=== PATIENT | female | born 1950 | race Caucasian/White ===

== ENCOUNTER → 2017-08-02 16:10 | Outpatient (CLI) | payer MEDICARE, BC, SELFPAY ==
--- NOTE | 2017-08-02 16:20 | BI_ITS ---
MAMMOGRAPHY - BILATERAL SCREENING REASON FOR EXAM: Female, 67 years old. Routine annual screening examination. PERTINENT HISTORY: Non-contributory. TECHNIQUE: Digital bilateral breast gary (3D mammographic acquisition) in the CC and MLO projections. 2-D mediolateral oblique (MLO) and craniocaudad (CC) views of both breasts were obtained. CAD: Full Field Digital Mammography with Computer Added Detection was performed. COMPARISON: Comparison is made with prior study dated July 15, 2016 and July 10, 2015. FINDINGS: Breast Composition: The breasts are heterogeneously dense, which may obscure small masses. There are no dominant masses or suspicious calcifications. No other significant abnormalities are identified. There has been no significant change since the prior study. BI/SCREENING MAMM (CAD), BILAT IMPRESSION: Stable bilateral screening mammogram. Yearly follow-up mammogram recommended. (A) ASSESSMENT CATEGORY: BIRADS Category 1: Negative. A letter regarding these results will be sent to the patient by the facility within 30 days. Approximately 10% of breast cancers are not detected by mammography. A normal mammogram should not delay biopsy of a clinically suspicious abnormality. [id number] Electronically Signed: Sravan Galeano MD at 12:57 EDT Tel [phone], Service support ,
== END ==
PROVIDERS: PCP Family Medicine; Visit Provider Obstetrics & Gynecology
DX: Z12.31 Encounter for screening mammogram for malignant neoplasm of breast (principal)
CPT/HCPCS: 77063; 77067

== ENCOUNTER → 2017-08-12 14:20 | Outpatient (CLI) | payer MEDICARE, BC, SELFPAY ==
--- NOTE | 2017-08-12 14:29 | BD_ITS ---
STUDY: DUAL ENERGY X-RAY ABSORPTIOMETRY / DXA REASON FOR EXAM: Female, 67 years old. The patient is postmenopausal. Loss of height. TECHNIQUE: Bone Mineral Density (BMD) measurements of lumbar spine and bilateral hips were obtained. COMPARISON: None. FINDINGS: Lumbar Spine (L1-L4): g/cm2 (0.880) / T-score (-2.4) / Z-score (-0.8) Findings are suggestive of osteopenia with a moderate fracture risk. Left Femur Total: g/cm2 (0.928) / T-score (-0.6) / Z-score (0.6) Left Femoral Neck: g/cm2 (0.931) / T-score (-0.8) / Z-score (0.7) Right Femur Total: g/cm2 (0.861) / T-score (-1.2) / Z-score (0.0) Right Femoral Neck: g/cm2 (0.845) / T-score (-1.4) / Z-score (0.1) BD/Dexa Bone Density Study IMPRESSION: The patient is considered osteopenic as outlined below according to World Reagan Organization (WHO) criteria with a moderate fracture risk. Reference Information: The T-score is the number of standard deviations above or below the standard which is normal for young adults at their peak bone mineral density. The World Health Organization (WHO) interprets the T-scores as follows: Above -1 Normal bone density Between -1 and -2.5 Osteopenia Equal to / or below -2.5 Osteoporosis As a practical clinical guideline, osteopenia may be graded as follows: Mild -1 through -1.5 Moderate -1.6 through -2.0 Severe -2.1 through -2.4 The Z-score is the number of standard deviations above or below age-matched controls. A Z-score of less than -1.5 would be considered abnormal. References: 1. NIH Osteoporosis and Related Bone Diseases http://www.osteo.org 2. International Society for Clinical Densitometry http://www.iscd.org 3. National Osteoporosis Foundation http://www.nof.org Electronically Signed: Sravan Galeano MD at 15:29 EDT Tel [phone], Service support ,
== END ==
PROVIDERS: PCP Family Medicine; Visit Provider Obstetrics & Gynecology
DX: E28.39 Other primary ovarian failure (principal)
CPT/HCPCS: 77080

== ENCOUNTER → 2017-12-20 11:51 | Outpatient (CLI) | payer MEDICARE, BC, SELFPAY ==
[2017-12-20 16:16] LABS: Absolute Lymphocyte Count 1.85 X10^3/ul (0.83-4.51); Absolute Neutrophil Count 3.8 X10^3/uL (2.0-7.7); Basophil# 0.02 X10^3/uL; Basophil% 0.3 % (0-1); Eosinophil# 0.05 X10^3/uL; Eosinophils% 0.8 % (0-5); Hematocrit 43.1 % (37-47); Hemoglobin 14.3 g/dl (12.0-15.0); Lymphocyte # 1.85 X10^3/ul (4.0); Lymphocyte % 29.6 % (19-41); Mean Corp Hgb Conc 33.2 g/gl (32-36); Mean Corpuscular Hgb 31.5 pg (27.0-32.0); Mean Corpuscular Volume 94.9 fL (81-99); Mean Platelet Vol. 10.5 fl (6.2-12.0); Monocyte# 0.49 X10^3/uL; Monocyte% 7.9 % (0-10); Neutrophil # 3.83 X10^3/uL (2.7-7.7); Neutrophil % 61.4 % (47-70); Platelet Count 259 K/mm3 (150-450); RBC Distribution Width CV 13.2 % (11.6-14.6); RBC Distribution Width SD 45.7 fl (35.1-43.9); Red Blood Count 4.54 M/mm3 (4.2-5.4); White Blood Count 6.2 K/mm3 (4.4-11.0)
[2017-12-20 16:20] LABS: POSITIVE COUNT NO; POSITIVE DIFFERENTIAL NO; POSITIVE MORPHOLOGY NO
[2017-12-20 16:34] LABS: ALB/GLOB Ratio 1.1 RATIO (0.9-2.4); AST(SGOT) 31 U/L (15-37); Alanine Aminotransfer ALT/SGPT 49 U/L (13-56); Albumin, Serum 4.1 g/dL (3.2-5.0); Alkaline Phosphatase 115 U/L (45-117); Anion Gap 9 (5-15); BUN 18 mg/dL (7-18); BUN/Creat Ratio 24.2 RATIO (10-20); Calcium,Total 9.1 mg/dL (8.5-10.1); Chloride 106 mmol/L (98-107); Cholesterol 236 mg/dL (200); Creatinine, Serum 0.74 mg/dL (0.55-1.02); EST Glomerular Filtration Rate 83 mL/min (>60); Est Glom Filt Rate - Afr Amer 101 mL/min (>60); Globulin 3.6 g/dL (2.2-4.2); Glucose 93 mg/dL (74-106); High Density Lipoprotein 67 mg/dL; Potassium 3.8 mmol/L (3.5-5.1); Protein, Total 7.7 g/dL (6.4-8.2); Sodium Level 141 mmol/L (136-145); Thyroid Stim Hormone (TSH) 1.11 uIU/mL (0.358-3.74); Triglycerides 102 mg/dL; Very Low Density Lipoprotein 20 mg/dL (5-40)
== END ==
PROVIDERS: Family Provider Family Medicine; PCP Family Medicine; Visit Provider Family Medicine
DX: E78.5 Hyperlipidemia, unspecified (principal); M85.80 Other specified disorders of bone density and structure, unspecified site
CPT/HCPCS: 36415; 80053; 80061; 82306; 84443; 85025

== ENCOUNTER → 2018-08-08 10:15 | Outpatient (CLI) | payer MEDICARE, BC, SELFPAY ==
--- NOTE | 2018-08-08 10:18 | BI_ITS ---
MAMMOGRAPHY - BILATERAL SCREENING 3-D TOMOSYNTHESIS REASON FOR EXAM: Female, 68 years old. Bilateral Screening 3-D tomosynthesis PERTINENT HISTORY: No significant family history. TECHNIQUE: 2-D mammograms and 3-D Tomosynthesis of the breast (s) were performed. CAD was performed. COMPARISON: August 02, 2017, July 15, 2016 FINDINGS: The breast composition is Scattered benign calcifications are seen. No dense spiculated masses or suspicious microcalcifications are identified. No architectural distortion is identified. There is no skin thickening or retraction. There has been no significant change since the prior study. BI/SCREEN MAMM (CAD) W/MAURA BILAT IMPRESSION: No mammographic signs of malignancy. Routine yearly mammograms recommended. ASSESSMENT CATEGORY: BIRADS Category 2: Benign. A letter regarding these results will be sent to the patient by the facility within 30 days. FOLLOW UP RECOMMENDATION: Yearly follow up mammogram recommended. (A) Approximately 10% of breast cancers are not detected by mammography. A normal mammogram should not delay biopsy of a clinically suspicious abnormality. Electronically Signed: Umair Durán MD at 16:37 EDT , Service support ,
== END ==
PROVIDERS: Family Provider Family Medicine; PCP Family Medicine; Referring Provider Obstetrics & Gynecology; Visit Provider Obstetrics & Gynecology
DX: Z12.31 Encounter for screening mammogram for malignant neoplasm of breast (principal)
CPT/HCPCS: 77063; 77067

== ENCOUNTER → 2018-12-21 07:10 | Outpatient (CLI) | payer MEDICARE, BC, SELFPAY ==
[2018-08-08 11:29] VITALS: BMI 31.5
--- NOTE | 2018-12-21 07:16 | MRI_ITS ---
STUDY: MRI RIGHT MIDFOOT REASON FOR EXAM: Female, 68 years old. Right foot pain. Stress fracture. TECHNIQUE: Standardized fat and water weighted pulse sequences were obtained in all 3 orthogonal planes. COMPARISON: None. FINDINGS: Multiple regions of abnormal bone marrow edema/contusion involving the medial cuneiform, middle cuneiform and cuboid (sagittal images 10 through 21 series 8). No acute fracture line. No acute dislocation. No acute bone destruction. Normal talonavicular joint. Normal calcaneocuboid joint. Mild naviculocuneiform arthrosis. Mild tarsometatarsal arthrosis predominating medially. Mild first metatarsophalangeal joint arthrosis. Second through fifth metatarsal phalangeal joints unremarkable. First through fifth digits intact. 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 Mild arthrosis at the second through fourth proximal distal interphalangeal joints. Normal flexor tendons. Normal extensor tendons. Normal Lisfranc ligament (coronal image 8 series 6). Normal muscles of the midfoot/forefoot. MRI/Lower Ext/No Jt/w/o IMPRESSION: Bone marrow edema/contusions at the midfoot (statistically stress reactions without fracture line) Mild osteoarthritic features Electronically Signed: Gumaro Fuller DO at 10:32 EST Tel , Service support ,
--- NOTE | 2018-12-21 07:16 | MRI_ITS ---
STUDY: MRI RIGHT ANKLE WITHOUT CONTRAST REASON FOR EXAM: Female, 68 years old. Pain. Stress fracture. Swelling. TECHNIQUE: Standardized fat and water weighted pulse sequences were obtained in all 3 orthogonal planes. COMPARISON: None. FINDINGS: Normal posterior tibialis tendon. Normal flexor digitorum longus tendon. Normal flexor hallucis longus tendon. Normal peroneus longus and brevis tendons. Normal tibialis anterior tendon. Normal extensor hallucis longus tendon. Normal extensor digitorum longus tendons. Normal Achilles tendon and teno-osseous insertion. Moderate plantar fascial thickening with minimal acute edema (sagittal image 11 series 7).. Normal plantar calcaneal tubercles. Normal intrinsic muscles of the rearfoot. Normal distal tibiofibular syndesmotic ligamentous complex. Mild chronic anterior talofibular ligament thickening (axial and 16 series 4). Normal subtalar ligaments and sinus tarsi. Normal deltoid ligamentous complexes. Normal plantar calcaneonavicular (spring) ligament. Normal Lisfranc ligament (axial image 18 series 8). Normal tibiotalar articulation. Normal talar dome. Normal subtalar articulations. Normal talonavicular articulation. Normal calcaneocuboid articulation. Normal navicular-cuneiform articulations. Tarsometatarsal joint arthrosis predominating at the first and second digits. Bone marrow edema/contusion at the first metatarsal base, medial cuneiform, second metatarsal base and middle cuneiform. Middle cuneiform incomplete stress fracture (axial image 20 series 3 and sagittal image 13 series 6). Mild cuboid marrow edema. Mild calcaneal marrow edema. MRI/Lower Ext Joint Only (Routine) IMPRESSION: Middle cuneiform incomplete stress fracture with additional regions of bone contusion/edema Mild tarsometatarsal joint arthrosis Mild acute on chronic plantar fasciitis Mild chronic ATFL sprain Electronically Signed: Gumaro Fuller DO at 10:17 EST Tel , Service support ,
== END ==
PROVIDERS: Family Provider Family Medicine; PCP Family Medicine; Referring Provider Podiatrist Foot & Ankle Surgery; Visit Provider Podiatrist Foot & Ankle Surgery
DX: M84.374S Stress fracture, right foot, sequela (principal)
CPT/HCPCS: 73718; 73721

== ENCOUNTER → 2019-11-30 10:17 | Outpatient (CLI) | payer MEDICARE, BC, SELFPAY ==
[2018-08-08 11:29] VITALS: BMI 31.5
--- NOTE | 2019-11-30 10:19 | BI_ITS ---
MAMMOGRAPHY - BILATERAL SCREENING REASON FOR EXAM: Female, 69 years old. Routine annual screening examination. PERTINENT HISTORY: Non-contributory. TECHNIQUE: Digital bilateral breast maura (3D mammographic acquisition) in the CC and MLO projections. 2-D mediolateral oblique (MLO) and craniocaudad (CC) views of both breasts were obtained. CAD: Full Field Digital Mammography with Computer Added Detection was performed. COMPARISON: Comparison is made with prior study dated 08/08/2018 and 08/02/2017. FINDINGS: Breast Composition: The breasts are heterogeneously dense, which may obscure small masses. There are no dominant masses or suspicious calcifications. No other significant abnormalities are identified. There has been no significant change since the prior study. BI/SCREEN MAMM (CAD) W/MAURA BILAT IMPRESSION: Stable bilateral screening mammogram. Yearly follow-up mammogram recommended. (A) ASSESSMENT CATEGORY: BIRADS Category 1: Negative. A letter regarding these results will be sent to the patient by the facility within 30 days. Approximately 10% of breast cancers are not detected by mammography. A normal mammogram should not delay biopsy of a clinically suspicious abnormality. [id number] Electronically Signed: Sravan Galeano, at 12:33 EDT , Service support ,
== END ==
PROVIDERS: PCP Family Medicine; Referring Provider Obstetrics & Gynecology; Visit Provider Obstetrics & Gynecology
DX: Z12.31 Encounter for screening mammogram for malignant neoplasm of breast (principal)
CPT/HCPCS: 77063; 77067

== ENCOUNTER 2020-04-18 09:59 | Outpatient (RCR) | payer MEDICARE, BC, SELFPAY ==
[2019-11-30 10:46] VITALS: BMI 32.2
[2020-04-18] MEDS: COVID-19 VACC, MRNA(PFIZER)/PF 30 MCG/0.3 ML SYRINGE IM (17:01)
[2020-05-09] MEDS: COVID-19 VACC, MRNA(PFIZER)/PF 30 MCG/0.3 ML SYRINGE IM (16:26)
== END 2020-07-23 23:59 ==
LOC: IMMUN 09:59
PROVIDERS: PCP Family Medicine; Visit Provider Family Medicine
DX: Z23 Encounter for immunization (principal)
CPT/HCPCS: 0001A; 0002A; 91300

== ENCOUNTER 2020-06-27 10:00 | Outpatient (RCR) | payer MEDICARE, BC, SELFPAY ==
[2019-11-30 10:46] VITALS: BMI 32.2
--- NOTE | 2020-05-28 13:03 | HP.PTEVAL ---
Patient's Visit Information RIAN PENA is a 70 year old F referred to Physical Therapy by Dr. Yaima Costello DO with a diagnosis of Left Knee Pain. Date of Evaluation: 05/28/20 Physical Therapist: Shelby Garibay DPT - Visit Plan Frequency: 2x /Week Duration: 4 Weeks Plan: Ultrasound to medial knee- strength in LE and core strength/stabilization. HEP Given IE: SLR, Clams, SLS without hip drop. - Subjective Patient reports that 14 years ago she fell at work- therapy delayed due to WC- but never had surgery. Last summer she was out walking and her knee gave out and splattered on the ground- bruise but no issues. 3-4 weeks ago she woke up and it was just sore. Agg: bending, pushing her leg out to the side. Went to family doctor finished the anti-inflam and the pain is almost gone. The pain is located along the distal patella and medial joint line- no radiating pain. Had some thigh soreness but that has worked its way out. She has been walking 20 [address] without issues. Describes the pain as achy. Does have some clicking or slight buckle. Worst: Last few weeks 05/25 now: 03/27. Agg: Figure 4, bending it, taking it out to the side. Eases: ice, elevation, medication Best: 010. Has not had any x-rays or MRI. Sleep: not disturbed- mostly side sleeper- no pillow between the knees. Does have a little bit of back pain that comes and goes osteopenia- standing to long or yardwork- she has to get up and stretch out the back. Walks a lot in the summer- several times a week. In the winter she was doing the keep moving with the [employer] but hasn't been doing that for a couple of months. PMhx/Meds: no changes- scanned in chart from . - Objective Posture: FH, RS, can correct with verbal cues but does not maintain. Gait: no deviation noted. Stairs: asc/desc 8 recip with 1 HR and no pain. HR/TR: able. SLS: 2 sec then LOB and hip drop. Palpation: tender along medial joint line and distal patella. Sensation/Reflex: WNL. Strength: Core: fair, Hip: 4/5 throughout, Knee: 4+/5, Ankle: 5/5. Flex: HS: no restriction, Gastroc: no restriction. Special Test: Ken: positive - Goals Goal 1:: Patient will be I with HEP and progression Goal Time Frame: 4-6 Weeks Goal 2:: Patient will SLS for 15 sec without loss of balance. Goal Time Frame: 4-6 Weeks Goal 3:: Patient will report no pain for 1 week with all ADL's. Goal Time Frame: 4-6 Weeks Goal 4:: Patient will maintain proper posture t/o tx session to demo increased core s/s. Goal Time Frame: 4-6 Weeks - Rehabilitation Potential Physical Therapy Diagnosis: Patient presents with hypomobility- she has decreased painfree ROM, strength and muscular endurance leading to poor posture and increased pain with ADL's. Rehabilitation Potential: Fair - Anticipated Interventions Patient/Client Instruction: Educate patient on: Benefits of Fitness Program Therapeutic Exercise to Include: Strength training, Endurance training, Balance training, Agility training, Body mechanics, Postural training, Flexibilty training, Gait and locomotor training, Neuromotor development, Passive ROM, Active ROM, Dynamic Lumbar Stabilization, Scapular Strength/Stabilization TENS: Yes Thermo therapy (hot pack): Yes Ultrasound (thermal/non thermal): Yes For the Purpose of:: To decrease pain Thank you for the opportunity to evaluate your patient. For Medicare and Medicare HMO plans, please review the plan of care and approve it. It will need to be FAXED BACK to us at [phone] for Medicare purposes. For Medicare only, by signing this I certify the plan of care. Please let me know if there are questions or concerns regarding this plan of care. Physician Signature: Date:
--- NOTE | 2020-06-27 10:28 | HP.PTDCSUM ---
It has been my pleasure to treat RIAN PENA referred by Dr. Yaima Costello DO, with the diagnosis of Left Knee Pain for a total of 9 visit(s). Discharge Date: Please see the following information for a summary of their discharge status. Subjective: She has been sore after last therapy session. Comes and goes depending on what she is doing. Worst: 3/10 Best: 0/10 most of the time- but still has some discomfort. left knee Pain Intensity (Out of 10): 2 % Improvement: 25 Objective/Function: Posture: FH, RS, can correct with verbal cues but does not maintain. Gait: no deviation noted. Stairs: asc/desc 8 recip with 1 HR and no pain. HR/TR: able. SLS: 10 sec then LOB and hip drop. Palpation: tender along medial joint line and distal patella. Sensation/Reflex: WNL. Strength: Core: fair, Hip: 4+/5 throughout, Knee: 5/5, Ankle: 5/5. Flex: HS: no restriction, Gastroc: no restriction. Special Test: Ken: positive Goal 1:: Patient will be I with HEP and progression Goal Progress: Goal Met Goal 2:: Patient will SLS for 15 sec without loss of balance. Goal Progress: Progressing Goal 3:: Patient will report no pain for 1 week with all ADL's. Goal Progress: Progressing Goal 4:: Patient will maintain proper posture t/o tx session to demo increased core s/s. Goal Progress: Progressing Plan: Ultrasound to medial knee- strength in LE and core strength/stabilization. If there are questions or concerns regarding this patient's physical therapy, please feel free to call me at [phone]. Thank you for the referral of this patient. Sincerely, LIANA LozanoT
== END 2020-06-27 19:00 | disposition home or self-care (01) ==
LOC: PT 10:00
PROVIDERS: PCP Family Medicine; Referring Provider Family Medicine; Visit Provider Family Medicine
DX: M25.562 Pain in left knee (principal)
CPT/HCPCS: 97035; 97110; 97162; 97164

== ENCOUNTER → 2020-06-28 10:09 | Outpatient (CLI) | payer MEDICARE, BC, SELFPAY ==
[2019-11-30 10:46] VITALS: BMI 32.2
[2020-06-28 12:07] LABS: Absolute Lymphocyte Count 1.77 X10^3/uL (0.83-4.51); Basophil# 0.07 X10^3/uL; Basophil% 1.3 % (0-1); Eosinophil# 0.08 X10^3/uL; Eosinophils% 1.5 % (0-5); Hematocrit 43.4 % (37-47); Hemoglobin 13.8 g/dL (12.0-15.0); Lymphocyte # 1.77 X10^3/ul (0.83-4.51); Lymphocyte % 32.9 % (19-41); Mean Corp Hgb Conc 31.8 g/dL (32-36); Mean Corpuscular Hgb 30.3 pg (27.0-32.0); Mean Corpuscular Volume 95.2 fL (81-99); Mean Platelet Vol. 10.4 fl (6.2-12.0); Monocyte# 0.45 X10^3/uL; Monocyte% 8.4 % (0-10); NRBC Flagged by Analyzer 0 % (0-5); Neutrophil % 55.7 % (47-70); Platelet Count 269 K/mm3 (150-450); RBC Distribution Width CV 12.8 % (11.6-14.6); RBC Distribution Width SD 44.9 fl (35.1-43.9); Red Blood Count 4.56 M/mm3 (4.2-5.4); White Blood Count 5.4 K/mm3 (4.4-11.0)
[2020-06-28 12:46] LABS: ALB/GLOB Ratio 1.1 RATIO (0.9-2.4); AST(SGOT) 37 U/L (15-37); Alanine Aminotransfer ALT/SGPT 52 U/L (13-56); Alkaline Phosphatase 130 U/L (45-117); Anion Gap 5 (5-15); BUN 17 mg/dL (7-18); BUN/Creat Ratio 20.1 RATIO (10-20); Calcium,Total 9.3 mg/dL (8.5-10.1); Chloride 106 mmol/L (98-107); Cholesterol 249 mg/dL (200); Creatinine, Serum 0.85 mg/dL (0.55-1.02); EST Glomerular Filtration Rate 71 mL/min (>60); Est Glom Filt Rate - Afr Amer 86 mL/min (>60); Globulin 3.7 g/dL (2.2-4.2); Glucose 110 mg/dL (74-106); High Density Lipoprotein 54 mg/dL; Potassium 4.1 mmol/L (3.5-5.1); Protein, Total 7.7 g/dL (6.4-8.2); Sodium Level 141 mmol/L (136-145); Triglycerides 165 mg/dL; Very Low Density Lipoprotein 33 mg/dL (5-40)
[2020-06-29 09:33] LABS: LDL, Direct 120295 176 mg/dL (0-99)
== END ==
PROVIDERS: PCP Family Medicine; Referring Provider Physician Assistant; Visit Provider Physician Assistant
DX: L70.0 Acne vulgaris (principal); L71.8 Other rosacea; L72.0 Epidermal cyst; Z79.899 Other long term (current) drug therapy
CPT/HCPCS: 36415; 80053; 80061; 83721; 85025

== ENCOUNTER → 2020-12-09 10:32 | Outpatient (CLI) | payer MEDICARE, BC, SELFPAY ==
[2019-11-30 10:46] VITALS: BMI 32.2
--- NOTE | 2020-12-09 10:35 | BI_ITS ---
MAMMOGRAPHY - BILATERAL SCREENING REASON FOR EXAM: Female, 70 years old. Routine annual screening examination. PERTINENT HISTORY: Non-contributory. TECHNIQUE: Digital bilateral breast maura (3D mammographic acquisition) in the CC and MLO projections. 2-D mediolateral oblique (MLO) and craniocaudad (CC) views of both breasts were obtained. CAD: Full Field Digital Mammography with Computer Added Detection was performed. COMPARISON: Comparison is made with prior examination 11/30/2019 and 08/08/2018. FINDINGS: Breast Composition: The breasts are heterogeneously dense, which may obscure small masses. There are no dominant masses or suspicious calcifications. Stable small benign appearing bilateral axillary lymph nodes. No other significant abnormalities are identified. There has been no significant change since the prior study. BI/SCRN MAMM (CAD)W/MAURA BILAT IMPRESSION: Stable bilateral screening mammogram. Yearly follow-up mammogram recommended. (A) ASSESSMENT CATEGORY: BIRADS Category 2: Benign. A letter regarding these results will be sent to the patient by the facility within 30 days. Approximately 10% of breast cancers are not detected by mammography. A normal mammogram should not delay biopsy of a clinically suspicious abnormality. [id number] Electronically Signed: Sravan Galeano MD at 13:13 EDT , Service support ,
== END ==
PROVIDERS: PCP Family Medicine; Referring Provider Obstetrics & Gynecology; Visit Provider Obstetrics & Gynecology
DX: Z12.31 Encounter for screening mammogram for malignant neoplasm of breast (principal)
CPT/HCPCS: 77063; 77067

== ENCOUNTER → 2021-12-18 | Outpatient (CLI) | payer MEDICARE, BC, SELFPAY ==
--- NOTE | 2021-12-18 09:11 | BI_ITS ---
MAMMOGRAPHY - BILATERAL SCREENING REASON FOR EXAM: Female, 71 years old. Routine annual screening examination. PERTINENT HISTORY: Non-contributory. TECHNIQUE: Digital bilateral breast maura (3D mammographic acquisition) in the CC and MLO projections. 2-D mediolateral oblique (MLO) and craniocaudad (CC) views of both breasts were obtained. CAD: Full Field Digital Mammography with Computer Added Detection was performed. COMPARISON: Comparison is made with prior study 12/09/2020 and 11/30/2019. FINDINGS: Breast Composition: The breasts are heterogeneously dense, which may obscure small masses. There are no dominant masses or suspicious calcifications. Stable small benign appearing bilateral axillary nodes. No other significant abnormalities are identified. There has been no significant change since the prior study. BI/SCRN MAMM (CAD)W/MAURA BILAT IMPRESSION: Stable bilateral screening mammogram. Yearly follow-up mammogram recommended. (A) ASSESSMENT CATEGORY: BIRADS Category 2: Benign. A letter regarding these results will be sent to the patient by the facility within 30 days. Approximately 10% of breast cancers are not detected by mammography. A normal mammogram should not delay biopsy of a clinically suspicious abnormality. [id number] Electronically Signed: Sravan Galeano MD at 10:12 EDT ,
== END | disposition home or self-care (01) ==
LOC: OPBI 09:07
PROVIDERS: PCP Family Medicine; Visit Provider Obstetrics & Gynecology
DX: Z12.31 Encounter for screening mammogram for malignant neoplasm of breast (principal)
CPT/HCPCS: 77063; 77067

== ENCOUNTER → 2022-10-29 | Outpatient (CLI) | payer MEDICARE, BC, SELFPAY ==
[2022-10-29 12:20] LABS: Absolute Lymphocyte Count 2.01 X10^3/uL (0.83-4.51); Absolute Neutrophil Count 2.8 X10^3/uL (2.0-7.7); Basophil# 0.04 X10^3/uL; Basophil% 0.7 % (0-1); Eosinophil# 0.12 X10^3/uL; Eosinophils% 2.2 % (0-5); Hematocrit 42.1 % (37-47); Hemoglobin 13.7 g/dL (12.0-15.0); Lymphocyte # 2.01 X10^3/ul (0.83-4.51); Lymphocyte % 36.9 % (19-41); Mean Corp Hgb Conc 32.5 g/dL (32-36); Mean Corpuscular Hgb 31.4 pg (27.0-32.0); Mean Corpuscular Volume 96.6 fL (81-99); Mean Platelet Vol. 10.7 fl (6.2-12.0); Monocyte% 9.2 % (0-10); NRBC Flagged by Analyzer 0 % (0-5); Neutrophil # 2.75 X10^3/uL (2.7-7.7); Neutrophil % 50.6 % (47-70); Platelet Count 268 K/mm3 (150-450); RBC Distribution Width CV 13.2 % (11.6-14.6); Red Blood Count 4.36 M/mm3 (4.2-5.4); White Blood Count 5.4 K/mm3 (4.4-11.0)
[2022-10-29 12:32] LABS: Vitamin D,25 Hydroxy 70.6 ng/mL
[2022-10-29 12:42] LABS: ALB/GLOB Ratio 1.1 RATIO (0.9-2.4); AST(SGOT) 19 U/L (15-37); Alanine Aminotransfer ALT/SGPT 32 U/L (13-56); Albumin, Serum 3.7 g/dL (3.2-5.0); Alkaline Phosphatase 109 U/L (45-117); Anion Gap 6 (5-15); BUN 19 mg/dL (7-18); Calcium,Total 8.7 mg/dL (8.5-10.1); Chloride 112 mmol/L (98-107); Cholesterol 216 mg/dL (200); Creatinine, Serum 0.82 mg/dL (0.55-1.02); EST Glomerular Filtration Rate 73 mL/min (>60); Est Glom Filt Rate - Afr Amer 88 mL/min (>60); Globulin 3.4 g/dL (2.2-4.2); Glucose 121 mg/dL (74-106); High Density Lipoprotein 53 mg/dL; Potassium 3.8 mmol/L (3.5-5.1); Protein, Total 7.1 g/dL (6.4-8.2); Sodium Level 143 mmol/L (136-145); Thyroid Stim Hormone (TSH) 2.16 uIU/mL (0.358-3.74); Triglycerides 90 mg/dL; Very Low Density Lipoprotein 18 mg/dL (5-40)
[2022-10-30 04:07] LABS: LDL, Direct 120295 155 mg/dL (0-99)
== END | disposition home or self-care (01) ==
LOC: BFHLAB 08:55
PROVIDERS: PCP Family Medicine; Referring Provider Family Medicine; Visit Provider Family Medicine
DX: R53.83 Other fatigue (principal); E55.9 Vitamin D deficiency, unspecified; E78.5 Hyperlipidemia, unspecified; Z51.81 Encounter for therapeutic drug level monitoring
CPT/HCPCS: 36415; 80053; 80061; 82306; 83721; 84443; 85025

== ENCOUNTER → 2022-12-25 | Outpatient (CLI) | payer MEDICARE, BC, SELFPAY ==
--- NOTE | 2022-12-25 11:50 | BI_ITS ---
MAMMOGRAPHY - BILATERAL SCREENING REASON FOR EXAM: Female, 72 years old. Routine annual screening examination. PERTINENT HISTORY: Non-contributory. TECHNIQUE: Digital bilateral breast maura (3D mammographic acquisition) in the CC and MLO projections. 2-D mediolateral oblique (MLO) and craniocaudad (CC) views of both breasts were obtained. CAD: Full Field Digital Mammography with Computer Added Detection was performed. COMPARISON: Comparison is made with prior study December 18, 2021 and December 09, 2020. FINDINGS: Breast Composition: The breasts are heterogeneously dense, which may obscure small masses. There are no dominant masses or suspicious calcifications. Stable small benign-appearing bilateral axillary lymph nodes. No other significant abnormalities are identified. There has been no significant change since the prior study. BI/SCRN MAMM (CAD)W/MAURA BILAT IMPRESSION: Stable bilateral screening mammogram. Yearly follow-up mammogram recommended. (A) ASSESSMENT CATEGORY: BIRADS Category 2: Benign. A letter regarding these results will be sent to the patient by the facility within 30 days. Approximately 10% of breast cancers are not detected by mammography. A normal mammogram should not delay biopsy of a clinically suspicious abnormality. [id number] Electronically Signed: Sravan Galeano MD at 13:17 EST ,
== END | disposition home or self-care (01) ==
LOC: OPBI 11:49
PROVIDERS: PCP Family Medicine; Referring Provider Obstetrics & Gynecology; Visit Provider Obstetrics & Gynecology
DX: Z12.31 Encounter for screening mammogram for malignant neoplasm of breast (principal)
CPT/HCPCS: 77063; 77067

== ENCOUNTER → 2023-02-24 | Outpatient (CLI) | payer MEDICARE, BC, SELFPAY ==
--- NOTE | 2023-02-24 14:51 | BD_ITS ---
STUDY: DUAL ENERGY X-RAY ABSORPTIOMETRY / DXA REASON FOR EXAM: Female, 72 years old. Post menopausal TECHNIQUE: Bone Mineral Density (BMD) measurements of lumbar spine and bilateral hips were obtained. COMPARISON: Comparison is made with prior study dated August 12, 2017. FINDINGS: Lumbar Spine (L1-L4): g/cm2 (0.827) / T-score (-1.7) / Z-score (0.4) Findings are suggestive of osteopenia with a moderate fracture risk. Left Femur Total: g/cm2 (0.871) / T-score (-0.6) / Z-score (1.0) Left Femoral Neck: g/cm2 (0.734) / T-score (-1.0) / Z-score (0.8) Right Femur Total: g/cm2 (0.878) / T-score (-0.5) / Z-score (1.0) Right Femoral Neck: g/cm2 (0.734) / T-score (-1.0) / Z-score (0.8) The T-Scores on the most recent prior examination were: Lumbar Spine (L1-L4): There has been improvement of bone density since the previous examination. Left Femur Total: which represents an improvement of 0.8%. Right Femur Total: which represents an improvement of 7.4%. BD/Dexa Bone Density Study IMPRESSION: The patient is considered osteopenic as outlined below according to World Reagan Organization (WHO) criteria with a moderate fracture risk. There has been improvement of bone density since the previous examination. Reference Information: The T-score is the number of standard deviations above or below the standard which is normal for young adults at their peak bone mineral density. The World Health Organization (WHO) interprets the T-scores as follows: Above -1 Normal bone density Between -1 and -2.5 Osteopenia Equal to / or below -2.5 Osteoporosis As a practical clinical guideline, osteopenia may be graded as follows: Mild -1 through -1.5 Moderate -1.6 through -2.0 Severe -2.1 through -2.4 The Z-score is the number of standard deviations above or below age-matched controls. A Z-score of less than -1.5 would be considered abnormal. References: 1. NIH Osteoporosis and Related Bone Diseases www osteo.org 2. International Society for Clinical Densitometry www iscd.org 3. National Osteoporosis Foundation www nof.org Electronically Signed: Sravan Galeano MD at 14:46 EST ,
== END | disposition home or self-care (01) ==
LOC: OPBD 14:48
PROVIDERS: PCP Family Medicine; Referring Provider Obstetrics & Gynecology; Visit Provider Obstetrics & Gynecology
DX: Z78.0 Asymptomatic menopausal state (principal)
CPT/HCPCS: 77080

== ENCOUNTER → 2023-12-29 | Outpatient (CLI) | payer MEDICARE, BC, SELFPAY ==
--- NOTE | 2023-12-29 08:22 | BI_ITS ---
MAMMOGRAPHY - BILATERAL SCREENING REASON FOR EXAM: Female, 73 years old. Routine annual screening examination. PERTINENT HISTORY: Non-contributory. TECHNIQUE: Digital bilateral breast maura (3D mammographic acquisition) in the CC and MLO projections. 2-D mediolateral oblique (MLO) and craniocaudad (CC) views of both breasts were obtained. CAD: Full Field Digital Mammography with Computer Added Detection was performed. COMPARISON: Comparison is made with prior study December 25, 2022 and December 18, 2001. FINDINGS: Breast Composition: The breasts are heterogeneously dense, which may obscure small masses. There are no dominant masses or suspicious calcifications. Stable small benign-appearing bilateral axillary lymph nodes. No other significant abnormalities are identified. There has been no significant change since the prior study. BI/SCRN MAMM (CAD)W/MAURA BILAT IMPRESSION: Stable bilateral screening mammogram. Yearly follow-up mammogram recommended. (A) ASSESSMENT CATEGORY: BIRADS Category 2: Benign. A letter regarding these results will be sent to the patient by the facility within 30 days. Approximately 10% of breast cancers are not detected by mammography. A normal mammogram should not delay biopsy of a clinically suspicious abnormality. [id number] Electronically Signed: Sravan Galeano MD at 9:27 EST ,
== END | disposition home or self-care (01) ==
LOC: OPBI 08:22
PROVIDERS: PCP Family Medicine; Referring Provider Obstetrics & Gynecology; Visit Provider Obstetrics & Gynecology
DX: Z12.31 Encounter for screening mammogram for malignant neoplasm of breast (principal)
CPT/HCPCS: 77063; 77067

== ENCOUNTER 2024-06-22 08:49 | Outpatient (RCR) | payer SELFPAY | END 2024-07-15 23:59 | LOC: NS 08:49 | PROVIDERS: PCP Family Medicine | DX: Z71.3 Dietary counseling and surveillance (principal) ==

== ENCOUNTER → 2024-10-25 | Outpatient (CLI) | payer SELFPAY ==
--- OUTSIDE RECORDS SUMMARY | 2024-10-25 10:19 | XMS RPT_ITS | CCD ---
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 Rain Mcgill Attending Provider Dr. Yaima Costello Primary Care Provider Luis F Nails Primary Care Provider UnavailDr. Yaima Avery DO Primary Care Provider Referred, Self Attending Provider Unavailable Rain Mcgill Referring Unavailable Rain Mcgill Attending Unavailable Malys, Yaima Primary Care Unavailable Malys, Yaima Primary Care Unavailable Referred, Self Attending Unavailable Malys, Yaima Primary Care Unavailable Referred, Self Attending Unavailable Malamrita, Yaima Primary Care Unavailable Rain Mcgill Attending Unavailable Yaima Costello Referring Unavailable ESTEPHANIE ESPINAL Attending Unavailabl ESTEPHANIE Soto Referring Unavailabl [facility], LUIS F DENG Primary Care Unavailable ESTEPHANIE ESPINAL Attending Unavailabl e [place], LUIS F DENG Primary Care Unavailable ESTEPHANIE ESPINAL Attending Unavailabl e [place], LUIS F DENG Primary Care Unavailable Allergies Allergy Classification Reported Allergen(s) Allergy Type Date of Onset Reaction(s) Facility (6 sources) Seasonal allergy; Translations: [SEASONAL ALLERGIES] Allergy to substance Other: See Comments [facility] Medications Current Medications Medication Drug Class(es) Dates Sig (Normalized) Sig (Original) acyclovir 400 mg oral tablet (10 sources) Herpesvirus Nucleoside Analog DNA Polymerase Inhibitor, Herpes Simplex Virus Nucleoside Analog DNA Polymerase Inhibitor, Herpes Zoster Virus Nucleoside Analog DNA Polymerase Inhibitor Start: 07-13-2017 take 1 tablet by mouth once daily Acyclovir 400 mg tablet Active 400 mg PO daily July 13, 2017 12:00am Comment on above: Take 400 mg by mouth . azelaic acid 0.15 mg/mg topical gel (10 sources) Start: 11-30-2019 Azelaic Acid 15 % gel Apply to affected area. 11/30/2019 Active Start: 11-30-2019 Azelaic Acid 1 5 % gel Active 1 NMA TOPICAL TWICE A DAY November 30, 2019 12:00am Comment on above: Apply to affected ar ea. benoxinate hydrochloride 4 mg/ml / fluorescein sodium 3 mg/ml ophthalmic solution (3 sources) Diagnostic Dye Start: 03-20-2024 End: 03-20-2024 fluorescein-benoxi rosie 0.3-0.4 % 1 Drop (FLURESS) Start: 08-30-2023 End: 08-30-2023 fluorescein-benoxinate 0.3-0 .4 % 1 Drop (FLURESS) calcium carbonate 1500 mg / cholecalciferol 200 unt oral tablet (5 sources) Vitamin D Start: 12-18-2005 RIYA-600 WITH VITAMIN D 600 MG-200 UNIT TAB Take one(1) tablet daily. 0 12/18/2005 Active Comment on above: Take one(1) tablet d aily. calcium citrate 1500 mg / cholecalciferol 200 unt oral tablet (5 sources) Vitamin D Start: 08-08-2018 Calcium Citrate-Vitamin D3 (Calcium Citrate + D) 315-200 mg-unit tablet Active 1 {tbl} PO THREE TIMES A DAY August 08, 2018 12:00am cholecalciferol 0.05 mg oral capsule (5 sources) Vitamin D Start: 08-08-2018 take 1 capsule by mouth once daily Cholecalciferol (Vitamin D3) 2,000 unit capsule Active 2000 U PO DAILY August 08, 2018 12:00am dorzolamide 20 mg/ml ophthalmic solution (13 sources) Carbonic Anhydrase Inhibitor Start: 03-01-2023 End: 07-31-2024 take 1 drop(s) into the eye(s) every twelve hours dorzolamide (TRUSOPT) 2 % ophthalmic solution Use 1 drop in both eyes every 12 hours. 30 mL 3 07/31/2024 Active Start: 11-03-2021 End: 08-10-2022 take 1 drop(s) into the eye(s) every twelve hours dorzolamide (TRUSOPT) 2 % ophthalmic solution Indications: Primary open angle glaucoma of right eye, moderate stage , Primary open angle glaucoma (POAG) of left eye, mild stage Use 1 Drop in the right eye every 12 hours. 20 mL 11 08/10/2022 Active Start: 04-28-2021 take 1 drop(s) into the eye(s) every twelve hours dorzolamide (TRUSOPT) 2 % ophthalmic solution Use 1 Drop in the right eye every 12 hours. 20 mL 04/28/2021 Active Start: 08-08-2018 Dorzolamide 2 % drops Active 1 NMA OPHTHALMIC THREE TIMES A DAY August 08, 2018 12:00am Comment on above: Use 1 Drop in the ri ght eye every 12 hours. doxycycline hyclate 20 mg oral tablet (5 sources) Tetracycline-class Drug take 1 tablet by mouth twice daily doxycycline 20 mg tablet Take 20 mg by mouth twice daily. Active Comment on above: Take 20 mg by mouth twice daily. ISOtretinoin 20 mg oral capsule (5 sources) Retinoid Start: 02-12-20 20 CLARAVIS 20 mg capsule 02/12/2020 Active linseed oil 1000 mg oral capsule (2 sources) Start: 01-19-20 23 take 1 capsule by mouth once daily Flaxseed Oil 1,000 mg capsule Active 1000 mg PO DAILY January 18, 2023 1:00am administer with a meal metroNIDAZOLE 0.01 mg/mg topical gel (7 sources) Nitroimidazole Antimicrobial Start: 01-19-20 23 Metronidazole 1 % gel with pump Active 1 NMA TOPICAL DAILY January 18, 2023 1:00am Start: 11-30-2019 End: 12-09-2020 Metronidazole 0.75 % gel Dis continued 1 NMA TOPICAL DAILY November 30, 2019 12:00am December 09, 2020 10:57am Minocycline (5 sources) Tetracycline-class Drug minocycl ine HCl (AMZEEQ TOPICAL) Apply to affected area. Active minocycline HCl (AMZEEQ TOPICAL) Apply to affected area. 0 Active Comment on above: Apply to affected ar ea. Multivitamin,Tx-Iron-Mi nerals (Complete Multivitamin) tablet (5 sources) Start: 08-08-2018 Multivitamin,Tx-Iron- Minerals (Complete Multivitamin) tablet Active 1 {tbl} PO DAILY August 08, 2018 12:00am Start: 08-08-2018 take 1 tablet by [place] once daily Multivitamin,Ya-Wvgn-Dwzviela (Complete Multivitamin) tablet Active 1 TABLET PO DAILY August 08, 2018 12:00am Start: 08-08-2018 take 1 tablet by [place] th once daily Multivitamin,Vg-Qakg-Rennqaht (Complete Multivitamin) tablet Active 1 TABLET PO DAILY August 07, 2018 11:00pm multivitamins w-minerals/lut(CENTRUM SILVER TAB) (5 sources) Start: 09-20-2007 multivitamins w-minerals/lut(CENTRUM SILVER TAB) Take one(1) tablet daily. 0 09/20/2007 Active Comment on above: Take one(1) tablet d aily. phenylephrine hydrochloride 25 mg/ml ophthalmic solution (1 source) alpha-1 Adrenergic Agonist Start: 03-20-2024 End: 03-20-2024 PHENYLephrine 2.5 % 1 Drop (AK-DILATE, ANH-SYNEPHRINE) proparacaine hydrochloride 5 mg/ml ophthalmic solution (2 sources) Local Anesthetic Start: 03-20-2024 End: 03-20-2024 proparacaine 0.5 % 1 Drop (ALCAINE) Start: 08-30-2023 End: 08-30-2023 proparacaine 0.5 % 1 Drop (A LCAINE) triamcinolone acetonide 0.055 mg/actuat metered dose nasal spray (10 sources) Corticosteroid Start: 07-13-2017 Triamcinolone Acetonide (Nasacort) 55 mcg aerosol,spray Active 1 NMA INTRANASAL daily July 13, 2017 12:00am Start: 07-13-2017 Triamcinolone Acetonide (Nasacort) 55 mcg aerosol,spray Active 1 SPRAY INTRANASAL daily July 12, 2017 11:00pm TRIAMCINOLONE AC ETONIDE (NASACORT NASAL) Indications: Primary open angle glaucoma of right eye, moderate stage , 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 0 Active Comment on above: Use in the nose. tropicamide 10 mg/ml ophthalmic solution (1 source) Anticholinergic Start: 03-20-19 End: 03-20-19 tropicamide 1 % 1 Drop (MYDRIACYL) vitamin b12 1 mg oral tablet (5 sources) Vitamin B12 take 1 tablet by mouth once daily cyanocobalamin (VITAMIN B-12) 1,000 mcg tab Take 1,000 mcg by mouth once daily. Active Comment on above: Take 1,000 mcg by mo ut once daily. vitamin b6 100 mg oral tablet (5 sources) take 1 tablet by mouth once daily pyridoxine, vitamin B6, (VITAMIN B6) 100 mg tablet Take 100 mg by mouth once daily. Active Comment on above: Take 100 mg by mouth once daily. Completed/Discontinued Medications Medication Drug Class(es) Dates Sig (Normalized) Sig (Original) amoxicillin 500 mg oral capsule (5 sources) Penicillin-class Antibacterial Start: 11-30-2019 End: 12-09-2020 take 1 capsule by mouth twice daily Amoxicillin 500 mg capsule Discontinued 500 mg PO TWICE A DAY November 30, 2019 12:00am December 09, 2020 10:57am nystatin 100 unt/mg topical powder (4 sources) Polyene Antifungal Start: 01-20-2022 End: 02-11-2024 Nystatin (Nystop) 100,000 unit/gram powder Discontinued 1 NMA TOPICAL TWICE A DAY January 20, 2022 1:00am February 11, 2024 2:44pm Start: 01-20-2022 Nystatin (Nyst op) 100,000 unit/gram powder Active 1 APPLIC TOPICAL TWICE A DAY January 20, 2022 12:00am [place]-3 Fatty Acids (Fish Oil Concentrate) 1,000 mg capsule (5 sources) Start: 11-30-2019 End: 01-18-2023 take 1 capsule by mouth once daily [place]-3 Fatty Acids (Fish Oil Concentrate) 1,000 mg capsule Discontinued 1000 mg PO DAILY November 30, 2019 12:00am January 18, 2023 5:21pm Start: 11-30-2019 End: 01-18-2023 take 1 capsule by mouth once daily [place]-3 Fatty Acids (Fish Oil Concentrate) 1,000 mg capsule Discontinued 1000 MG PO DAILY November 29, 2019 11:00pm January 18, 2023 4:21pm Start: 11-30-2019 take 1 capsule by mo uth once daily [place]-3 Fatty Acids (Fish Oil Concentrate) 1,000 mg capsule Active 1000 MG PO DAILY November 30, 2019 12:00am Start: 11-30-2019 take 1 capsule by mo uth once daily [place]-3 Fatty Acids (Fish Oil Concentrate) 1,000 mg capsule Active 1000 MG PO DAILY November 29, 2019 11:00pm Problems Active Problems Problem Classification Problem Date Documented Da te Episodic/Chronic Glaucoma (20 sources) Ocular hypertension, left eye; Translations: [Ocular hypertension] Onset: 01-16-2015 Resolved: 08-30-2023 01-16-2015 Chronic Menopausal disorders (10 sources) Atrophic vaginitis; Translations: [Postmenopausal atrophic vaginitis] Onset: 02-06-2009 02-06-2009 Chronic Mycoses (4 sources) Candidiasis of skin; Translations: [Candidiasis of skin and nail] 01-15-2022 Episodic Comment on above: over the summer- top ordered Other female genital disorders (5 sources) Dyspareunia; Translations: [Dyspareunia] Onset: 02-06-2009 02-06-2009 Chronic Other upper respiratory disease (5 sources) Seasonal allergy; Translations: [Other seasonal allergic rhinitis] 07-13-2017 Chronic Retinal detachments; defects; vascular occlusion; and retinopathy (13 sources) Epiretinal membrane of left eye; Translations: [Puckering of macula, left eye] Onset: 10-12-2016 04-12-2017 Chronic Viral infection (5 sources) Herpes simplex; Translations: [Herpesviral infection, unspecified] 07-13-2017 Episodic Past or Other Problems Problem Classification Problem Date Documented Da te Episodic/Chronic Other screening for suspected conditions (not mental disorders or infectious disease) (1 source) Encounter for screening mammogram for malignant neoplasm of breast; Translations: [Encounter for screening mammogram for malignant neoplasm of breast] Onset: 01-27-2024 Episodic Results Test Name Value Interpretation Reference Range Facility VISUAL FIELD 24-2 OU (BOTH E YES)on 07-31-2024 [facility] Radiology Study observation (narrative) [facility] OCT MACULA CIRRUS OS (LEFT E YE)on 03-20-2024 [facility] Radiology Study observation (narrative) [facility] OCT OPTIC NERVE CIRRUS OU (B OTH EYES)on 03-20-2024 [facility] Radiology Study [facility] (narrative[facility] [employer] Office Visit Reporton 02-11-2024 [employer] Office Visit Report [facility] [address], [address] [place] [address] OFFICE VISIT Date of Service: 02/11/24 MR#: [id number] Acct: [id number] Name: VALERIA PENA Rep #: [id number] : 1950 Provider: Dr. 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 Certified Required: No Is patient in pain?: No Feel stressed/tense/nervo us/anxious/difficult y sleeping: not at all Allergies No Known Allergies Allergy (Verified 02/11/24 13:43) Medications ???Medication ???Instructions ???Recorded ???Confirmed ???Type acyclovir 400 mg tablet 400 mg PO QDAY 07/13/17 02/11/24 History triamcinolone acetonide 55 mcg 1 spray intranasal QDAY 07/13/17 02/11/24 History nasal spray aerosol (Nasacort) calcium 315 mg (as 1 tab PO TID 08/08/18 02/11/24 History citrate)-vitamin D3 5 mcg (200 unit) tablet (Calcium Citrate + D) cholecalciferol (vitamin D3) 50 2,000 unit PO DAILY 08/08/18 02/11/24 History mcg (2,000 unit) capsule dorzolamide 2 % eye drops 1 drp ophthalmic (eye) TID 08/08/18 02/11/24 History multivitamin,tx-iron -minerals 1 tab PO DAILY 08/08/18 02/11/24 History (Complete Multivitamin tablet) azelaic acid 15 % topical gel 1 applic topical BID 11/30/19 02/11/24 History flaxseed oil 1,000 mg capsule 1,000 mg PO DAILY 01/18/23 02/11/24 History metronidazole 1 % topical gel with 1 applic topical DAILY 01/18/23 02/11/24 History pump Is last menstrual period known: No Post menopausal: Yes Patient : No : No PFSH Medical History Rosacea Seasonal allergies Herpes simplex Surgical History History of unilateral salpingectomy Plantar fasciitis of left foot s/p macular holes S/P removal of right ovary S/P bunionectomy Family History Father Liver cancer Mother Myocardial infarction Grandmother Uterine cancer Brother , 63 [place] Myocardial infarction Social History Smoking Status: Never smoker alcohol intake: current details: occasionally substance use type: does not use caffeine: Yes what type of physical activity do you participate in: walking and other details: eugenia frequency: daily seatbelt use: always do you feel safe at home: Yes additional social history: -Endy Patient and are both retired History 0 Elective abortions Hx Para Spontaneous abortions Hx # Term Pregnancies Ectopic pregnancies Hx # Pregnancies Multiple births # of living children HPI Encounter for routine gynecological examination Details: VALERIA PENA is a 73 year old who presents for annual exam. Last PAP: 07/05/2015 - normal History of abnormal PAP: Last mammogram: 12/29/2023 - normal History of abnormal mammogram: Colon cancer screening: colonoscopy 12/2022 - normal results Other preventative health care screenings: Dr. Costello is PCP, orders routine labs Female Reproductive History Questions: metorrhagia: No, sexually active: Yes, dyspareunia: No and PCB: No Menopausal Symptoms: No hot flashes, No night sweats, No weight change, No mood changes, No difficulty concentrating, No sleep problems and No change in libido ROS Const Constitutional: Reports as per HPI; Denies fatigue, increased appetite, poor appetite, night sweats, weight gain or weight loss Cardio Card: Denies chest pain Resp Resp: Denies cough or dyspnea GI GI: Reports as per HPI; Denies abdominal pain, bloating, constipation, nausea or vomiting : Reports as per HPI and other; Denies difficulty voiding, dysuria, hematuria, hot flashes, nipple discharge, pelvic pain, prolapse symptoms, urinary frequency, urinary incontinence, urinary urgency, vaginal discharge, vaginal dryness, vaginal odor or vaginal pruritus Skin Skin/Breast: Denies changing lesions, breast mass, breast pain, breast skin changes or nipple discharge Psych Psych: Denies anxiety, change in libido, depression or difficulty concentrating Exam Const General: cooperative, healthy appearing, comfortable, no acute distress, well developed and well groomed HENMT Head: normal to inspection and normocephalic Ears: hearing grossly normal bilaterally and external ears normal Nose: external nose normal Face and sinus: normal facial exam Neck Neck: normal visual inspection, full ROM and no lymphadenopathy Thyroid: thyroid normal Chest Chest palpation inspection: normal inspection of the (more content not included)... Normal [facility] SCRN MAMM (CAD)W/MAURA BILATo n 12-29-2023 SCRN MAMM (CAD)W/MAURA BILAT [facility] Imaging Services [address] [place] [address] SCRN MAMM (CAD)W/MAURA BILAT MR#: [id number] Acct: [id number] Name: VALERIA PENA Rep #: [id number] : 1950 F 73 From: Sravan rome MD PCP: Dr. Yaima Costello, DO Status: [facility] Study: SCRN MAMM (CAD)W/MAURA BILAT Date of Exam: 12/16 05/08 Exam# [id number] Ordering Dr: Rain Mcgill [id number] MAMMOGRAPHY - BILATERAL SCREENING REASON FOR EXAM: Female, 73 years old. Routine annual screening examination. PERTINENT HISTORY: Non-contributory. TECHNIQUE: Digital bilateral breast maura (3D mammographic acquisition) in the CC and MLO projections. 2-D mediolateral oblique (MLO) and craniocaudad (CC) views of both breasts were obtained. CAD: Full Field Digital Mammography with Computer Added Detection was performed. COMPARISON: Comparison is made with prior study December 25, 2022 and December 18, 2001. FINDINGS: Breast Composition: The breasts are heterogeneously dense, which may obscure small masses. There are no dominant masses or suspicious calcifications. Stable small benign-appearing bilateral axillary lymph nodes. No other significant abnormalities are identified. There has been no significant change since the prior study. BI/SCRN MAMM (CAD)W/MAURA BILAT IMPRESSION: Stable bilateral screening mammogram. Yearly follow-up mammogram recommended. (A) ASSESSMENT CATEGORY: BIRADS Category 2: Benign. A letter regarding these results will be sent to the patient by the facility within 30 days. Approximately 10% of breast cancers are not detected by mammography. A normal mammogram should not delay biopsy of a clinically suspicious abnormality. [id number] Electronically Signed: Sravan Galeano MD at 9:27 EST , CC: Dr. Yaima Costello, DO; Dr. Rain Mcgill MD Brewery Representative: Signed Normal [facility] VISUAL FIELD 24-2 OU (BOTH E YES)on 08-30-2023 [facility] Radiology Study observation (narrative) [facility] Absolute lymphocyte countOrd ered By: Yaima Costello on 10-29-2022 Lymphocytes Auto (Unsp spec) [#/Vol] 2.01 10*3/uL 0.83-4.51 [facility] Basophil percentageOrdered B y: Yaima Pravin on 10-29-2022 Basophils/100 WBC (Bld) 0.7 % 0-1 [facility] Bilirubin [Mass/Vol] 0.50 mg/dL 0.20-1.00 [facility] Comment on above: For patients on eltr ombopag therapy, use of Dimension [place] TBIL is not recommended. Chloride [Moles/Vol] 112 mmol/L 98-107 [facility] Cholesterol [Mass/Vol] 216 mg/dL <200 [facility] Comment on above: <200 mg/dL Desirable 200-240 mg/dL Borderline >240 mg/dL High Risk Eosinophils/100 WBC (Bld) 2.2 % 0-5 [facility] Glucose [Mass/Vol] 121 mg/dL 74-106 [facility] Comment on above: Fasting Glucose resu lt from 100 to 125 mg/dL suggests IMPAIRED HOMEOSTASIS per A.D.A. criteria. Neutrophils (Bld) [#/Vol] 2.8 10*3/uL 2.0-7.7 [facility] Neutrophils/100 WBC (Bld) 50.6 % 47-70 [facility] Potassium [Moles/Vol] 3.8 mmol/L 3.5-5.1 [facility] Protein [Mass/Vol] 7.1 g/dL 6.4-8.2 [facility] Sodium [Moles/Vol] 143 mmol/L 136-145 [facility] Triglyceride [Mass/Vol] 90 mg/dL <199 [facility] Comment on above: The drugs N-Acetylcy steine and Metamizole may falsely depress this assay.Serum Triglycerides Reference Interval Normal <150 mg/dL Borderline high 150 - 199 mg/dL High 200 - 499 mg/dL Very High > or = 500 mg/dL WBC (Bld) [#/Vol] 5.4 10*3/uL 4.4-11.0 [facility] Blood erythrocytes count (nu mber/volume)Ordered By: Yaima Costello on 10-29-2022 RBC (Bld) [#/Vol] 4.36 10*6/uL 4.2-5.4 [facility] Blood hemoglobin measurement (mass/volume)Ordered By: Yaima Costello on 10-29-2022 Hemoglobin (Bld) [Mass/Vol] 13.7 g/dL 12.0-15.0 [facility] Blood lymphocytes/100 leukoc ytesOrdered By: Yaima Costello on 10-29-2022 Lymphocytes/100 WBC (Bld) 36.9 % 19-41 [facility] Blood monocytes/100 leukocyt esOrdered By: Yaima Costello on 10-29-2022 Monocytes/100 WBC (Bld) 9.2 % 0-10 [facility] Blood platelet mean volumeOr dered By: Yaima Costello on 10-29-2022 Platelet mean volume (Bld) [Entitic vol] 10.7 fL 6.2-12.0 [facility] Cholesterol in LDL Direct as say [Mass/Vol]Ordered By: Yaima Costello on 10-29-2022 Cholesterol in LDL [Mass/Vol] 155 mg/dL 0-99 [facility] Comment on above: Performed at: [address] [id number] Director: Douglas Hunter PhD, Phone: [phone] Determination of erythrocyte mean corpuscular volume (MCV)Ordered By: Yaima Costello on 10-29-2022 MCV (RBC) [Entitic vol] 96.6 fL 81-99 [facility] Hematocrit Auto (Bld) [Volum e fraction]Ordered By: Yaima Costello on 10-29-2022 Hematocrit (Bld) [Volume fraction] 42.1 % 37-47 [facility] Laboratory - Chemistry and C hemistry - challengeOrdered By: Yaima Costello on 10-29-2022 ALP [Catalytic activity/Vol] 109 U/L 45-117 [facility] ALT [Catalytic activity/Vol] 32 U/L 13-56 [facility] CO2 [Moles/Vol] 25.0 mmol/L 21.0-32.0 [facility] Globulin (S) [Mass/Vol] 3.4 g/dL 2.2-4.2 [facility] Urea nitrogen/Creatinine [Mass ratio] 23.0 mg/mg 10-20 [facility] Laboratory - Hematology and Cell countsOrdered By: Yaima Costello on 10-29-2022 Erythrocyte distribution width (RBC) [Entitic vol] 47.0 fL 35.1-43.9 [facility] Erythrocyte distribution width (RBC) [Ratio] 13.2 % 11.6-14.6 [facility] Immature granulocytes/100 WBC (Bld) 0.400 % 0.0-0.9 [facility] Comment on above: IG% - Immature Granu locytes (promyelocytes, myelocytes and metamyelocytes) > 1% indicates that a LEFT SHIFT is Present. MCH (RBC) [Entitic mass] 31.4 pg 27.0-32.0 [facility] Nucleated RBC/100 WBC (Bld) [Ratio] 0 % 0-5 [facility] Laboratory - Miscellaneous t estsOrdered By: Yaima Costello on 10-29-2022 Service comment (Unsp spec) [Interp] TNP [facility] Comment on above: Test not performed MCHC Auto (RBC) [Mass/Vol]Or dered By: Yaima Costello on 10-29-2022 MCHC (RBC) [Mass/Vol] 32.5 g/dL 32-36 [facility] No Panel InformationOrdered By: Yaima Costello on 10-29-2022 Estimated GFR (MDRD) Amer 88 mL/min >60 [facility] Comment on above: GFR Calc Estimated GFR (MDRD) Non-Af Amer 73 mL/min >60 [facility] Comment on above: Non- GFR Calc Thyroid Stimulating Hormone (TSH) 2.16 uIU/mL 0.358-3.74 [facility] Vitamin D 25-Hydroxy 70.6 ng/mL [facility] Comment on above: Vitamin D 25(OH) Sta tus Range Deficiency <20 ng/mL (50nmol/L) Insufficiency 20 - 30 ng/mL (50 - 75 nmol/L) Sufficiency 30 - 100 ng/mL (75 - 250 nmol/L) Toxicity >100 ng/mL (>250 nmol/L) Platelets bldOrdered By: Echo Costello on 10-29-2022 Platelets (Bld) [#/Vol] 268 10*3/uL 150-450 [facility] Serum or plasma albumin won urement (mass/volume)Ordered By: Yaima Costello on 10-29-2022 Albumin [Mass/Vol] 3.7 g/dL 3.2-5.0 [facility] Serum or plasma albumin/glob ulin mass ratioOrdered By: Yaima Costello on 10-29-2022 Albumin/Globulin [Mass ratio] 1.1 {ratio} 0.9-2.4 [facility] Serum or plasma calcium won urement (mass/volume)Ordered By: Yaima Costello on 10-29-2022 Calcium [Mass/Vol] 8.7 mg/dL 8.5-10.1 [facility] Serum or plasma cholesterol in HDL measurement (mass/volume)Ordered By: Yaima Costello on 10-29-2022 Cholesterol in HDL [Mass/Vol] 53 mg/dL >40 [facility] Comment on above: The drugs N-Acetylcy steine and Metamizole may falsely depress this assay. Reference Range HDL <40 mg/dL Low HDL Cholesterol HDL >or= 60 mg/dL High HDL Cholesterol Serum or plasma cholesterol in VLDL measurement (mass/volume)Ordered By: Yaima Costello on 10-29-2022 Cholesterol in VLDL [Mass/Vol] 18 mg/dL 5-40 [facility] Serum or plasma creatinine m easurement (mass/volume)Ordered By: Yaima Costello on 10-29-2022 Creatinine [Mass/Vol] 0.82 mg/dL 0.55-1.02 [facility] Comment on above: The validity of the calculated GFR & GFRAA in patients over 70 years has not been determined. Clinical correlation is essential. Serum or plasma low density lipoprotein (LDL) cholesterol measurement (mass/volume)Ordered By: Yaima Costello on 10-29-2022 Cholesterol in LDL [Mass/Vol] 145 mg/dL 0-130 [facility] Serum or plasma urea nitroge n measurement (mass/volume)Ordered By: Yaima Costello on 10-29-2022 Urea nitrogen [Mass/Vol] 19 mg/dL 7-18 [facility] Thin prep Papanicolaou smear with manual screeningOrdered By: Yaima Costello on 10-29-2022 Thin prep Papanicolaou smear with manual screening 19 U/L 15-37 [facility] Thin prep Papanicolaou smear with manual screening 6 5-15 [facility] VISUAL FIELD 24-2 OU (BOTH E YES) [facility] Vital Signs Date Time Vital Sign Value Performing Clinician Faci lity 02-24-2023 14:50-0500 Body height 170.18 cm Yaima Costello [facility] 01-18-2023 16:28-0500 Diastolic blood pressure 92 mm[Hg] Yaimaalexandro Costello [facility] 01-18-2023 16:28-0500 Systolic blood pressure 150 mm[Hg] Yaimaalexandro Costello [facility] 01-18-2023 16:19-0500 Body mass index (BMI) [Ratio] 33.8 kg/m2 Yaimaalexandro Costello [facility] 01-18-2023 16:19-0500 Body weight 97.97 kg Yaima Costello [facility] Hospital Encounters Encounter Date Encounter Type Care Provider Facility Start: 07-31-2024 End: 07-31-2024 Patient encounter procedure Estephanie Espinal MD Work Phone: Ophthalmology Comment on above: Primary open angle g laucoma (POAG) of both eyes, moderate stage (Primary Dx) Start: 07-31-2024 End: 07-31-2024 ambulatory ESTEPHANIE ESPINAL Facility:[facility] Start: 07-26-2024 ambulatory Yaima Costello Facility:[facility] Start: 06-22-2024 End: 07-15-2024 Discharged Recurring Self Referred -Nutritional Servic es Work Phone: Start: 06-22-2024 End: 07-15-[address] Yaima Costello DO Work Phone: [facility] Work Phone: Start: 03-20-2024 End: 03-20-2024 ambulatory ESTEPHANIE ESPINAL Facility:[facility] Start: 03-20-2024 End: 03-20-2024 Patient encounter procedure Estephanie Espinal MD Work Phone: Ophthalmology Comment on above: Primary open angle g laucoma of right eye, moderate stage (Primary Dx); Primary open angle glaucoma (POAG) of left eye, mild stage; Lamellar macular hole of left eye; Epiretinal membrane, left Start: 02-11-2024 Encounter for gynecological examination (general) (routine) without abnormal findings Rain Mcgill [facility] Start: 02-11-2024 End: 02-11-2024 ambulatory Yaima Costello Facility:[facility] Start: 12-29-2023 End: 12-29-2023 ambulatory Rain Mcgill Facility:[facility] Start: 08-30-2023 End: 08-30-2023 ambulatory ESTEPHANIE ESPINAL Facility:[facility] Start: 08-30-2023 End: 08-30-2023 Patient encounter procedure Estephanie Espinal MD Work Phone: Ophthalmology Comment on above: Primary open angle g laucoma of right eye, moderate stage (Primary Dx); Primary open angle glaucoma (POAG) of left eye, mild stage Start: 02-24-2023 End: 02-24-2023 ambulatory Yaima WHYTE [facility] Work Phone: Start: 02-24-2023 End: 02-24-2023 Patient encounter procedure Yaima WHYTE [facility]-Outpatient Bone Densitometry Work Phone: Start: 01-18-2023 End: 01-18-2023 Patient encounter procedure Yaima WHYTE [facility] Work Phone: Start: 12-25-2022 End: 12-25-2022 ambulatory [facility] Work Phone: Start: 12-25-2022 End: 12-25-2022 Patient encounter procedure [facility]-Outpatient Breast Imaging Work Phone: Start: 10-29-2022 End: 10-29-2022 ambulatory [facility] Work Phone: Start: 10-29-2022 End: 10-29-2022 Patient encounter procedure [facility] Start: 08-10-2022 End: 08-10-2022 Patient encounter procedure Estephanie Espinal MD Work Phone: Ophthalmology Comment on above: Primary open angle g laucoma of right eye, moderate stage (Primary Dx); Primary open angle glaucoma (POAG) of left eye, mild stage; Lamellar macular hole of left eye Start: 12-18-2021 End: 12-18-2021 ambulatory [facility] Work Phone: Start: 12-18-2021 End: 12-18-2021 Patient encounter procedure [facility]-Outpatient Breast Imaging Start: 05-21-2021 Refill Estephanie irvin MD Work Phone: Ophthalmology Comment on above: Refill Request Procedures Date Procedure Procedure Detail Performing Clinician Start: 07-31-2024 Visual field xm uni/ bi w/interp extended exam Estephanie Espinal MD Work Phone: Start: 03-20-2024 End: 03-20-2024 Computerized ophthalmic imaging retina Estephanie Espinal MD Work Phone: Start: 08-30-2023 Visual field xm uni/ bi w/interp extended exam Estephanie Espinal MD Work Phone: Start: 02-24-2023 Dual energy X-ray absorptiometry Yaima Malys OLS Start: 12-25-2022 Screening mammography Start: 08-10-2022 Visual field xm uni/ bi w/interp extended exam Estephanie Espinal MD Work Phone: Start: 12-18-2021 Screening mammography Start: 07-15-2016 Mammography Estephanie de leon MD Work Phone: Start: 07-16-2009 Lipid 1996 panel - S mariella or Plasma Estephanie Espinal MD Work Phone: Start: 05-24-2005 Colonoscopy Estephanie de leon MD Work Phone: Plan of Treatment Date Care Activity Detail Author Start: 2027 RSV Vaccine (1 - 1-d ose 75+ series) RSV Vaccine (1 - 1-dose 75+ series) [facility] Start: 04-04-2025 End: 09-11-2025 VISUAL FIELD 24-2 OU (BOTH EYES) VISUAL FIELD 24-2 OU (BOTH EYES) [facility] Imaging Routine Primary open angle glaucoma of right eye, moderate stage Primary open angle glaucoma (POAG) of left eye, mild stage Expected: 04/04/2025, Expires: 09/11/2025 [facility] Work Phone: Comment on above: Expected: 04/04/2025 , Expires: 09/11/2025 Start: 12-20-2024 End: 12-20-2024 Patient encounter procedure 12/20/2024 8:00 AM EST Office Visit [facility] Ophthalmology [address] [place] [address] Estephanie Espinal MD [address] [place], [place] [id number] [facility] [address] [address] Return in about 4 months (around 11/30/2024). Ophthalmology Comment on above: Return in about 4 mo nths (around 11/30/2024). Start: 07-31-2024 End: 07-31-2024 Patient encounter procedure 07/31/2024 9:30 AM EDT Office Visit [facility] Ophthalmology [address] [id number] Estephanie Espinal MD [address] [place] [address] Return in about 4 months (around 07/18/2024) for VF . Ophthalmology Comment on above: Return in about 4 mo nths (around 07/18/2024) for VF . Start: 04-30-2024 Covid-19 Vaccine ( season) Covid-19 Vaccine ( season) [facility] Start: 03-20-2024 End: 03-20-2024 Patient encounter procedure 03/20/2024 9:15 AM EST Office Visit [facility] Ophthalmology [address] [facility] [address] [place] [id number] Estephanie Espinal MD [address] [place] [address] Return in about 6 months (around 03/01/2024). Ophthalmology Comment on above: Return in about 6 mo nths (around 03/01/2024). Start: 02-16-2024 Advance Directive Discussion Advance Directive Discussion [facility] Start: 10-17-2023 Influenza vaccination Influenza Vacc ine (#1) [facility] Start: 08-25-2023 End: 02-01-2024 OCT MACULA CIRRUS OS (LEFT EYE) OCT MACULA CIRRUS OS (LEFT EYE) [facility] Imaging Routine Lamellar macular hole of left eye Expected: 08/25/2023, Expires: 02/01/2024 [facility] Work Phone: Comment on above: Expected: 08/25/2023 , Expires: 02/01/2024 Start: 08-25-2023 End: 02-01-2024 OCT OPTIC NERVE CIRRUS OU (BOTH EYES) OCT OPTIC NERVE CIRRUS OU (BOTH EYES) [facility] Imaging Routine Primary open angle glaucoma of right eye, moderate stage Primary open angle glaucoma (POAG) of left eye, mild stage Expected: 08/25/2023, Expires: 02/01/2024 [facility] Work Phone: Comment on above: Expected: 08/25/2023 , Expires: 02/01/2024 Start: 03-19-2023 Covid-19 Vaccine () Covid-19 Vaccine () [facility] Start: 02-15-2023 Advance Directive Discussion Advance Directive Discussion [facility] Start: 02-15-2023 Behavioral Health Screening Behavioral Health Screening [facility] Start: 02-15-2022 ADVANCE DIRECTIVE DISCUSSION ADVANCE DIRECTIVE DISCUSSION [facility] Start: 02-15-2022 DEPRESSION ASSESSMENT DEPRESSION ASS ESSMENT [facility] Start: 02-15-2021 ADVANCE DIRECTIVE DISCUSSION ADVANCE DIRECTIVE DISCUSSION [facility] Start: 07-15-2017 Mammography MAMMOGRAM [facility] Start: 07-15-2017 Screening for malign ant neoplasm of breast Mammogram Screening [facility] Start: 2017 BONE DENSITY BONE DENSITY [facility] Start: 2017 Pneumococcal Vaccine : 65+ (1 of 1 - PCV) Pneumococcal Vaccine: 65+ (1 of 1 - PCV) [facility] Start: 2017 PNEUMOCOCCAL: 65+ (1 - PCV) PNEUMOCOCCAL: 65+ (1 - PCV) [facility] Start: 2017 PNEUMOVAX AGE 65 AND OVER WITH 5YR LOOKBACK (#1) PNEUMOVAX AGE 65 AND OVER WITH 5YR LOOKBACK (#1) [facility] Start: 2017 Screening for osteoporosis Bone Density Screening [facility] Start: 03-18-2017 Medicare Annual Wellness Visit Medicare Annual Wellness Visit [facility] Start: 05-25-2015 Colonoscopy COLONOSCOPY [facility] Start: 05-25-2015 COLORECTAL CANCER SCREENING COLORECTAL CANCER SCREENING [facility] Start: 05-25-2015 Screening for malign ant neoplasm of colon [facility] Start: 07-16-2014 Lipid panel Lipid Screening [facility] Start: 07-16-2014 LIPID SCREEN LIPID SCREEN [facility] Start: 2012 RSV Vaccine (1 - 1-d ose 60+ series) RSV Vaccine (1 - 1-dose 60+ series) [facility] Start: 2002 Pneumococcal Vaccine : 50+ (1 of 1 - PCV) Pneumococcal Vaccine: 50+ (1 of 1 - PCV) [facility] Start: 2002 SHINGRIX VACCINE (1 of 2) SHINGRIX VACCINE (1 of 2) [facility] Start: 1997 COLOGUARD (FIT-DNA) COLOGUARD (FIT-D NA) [facility] Start: [address] COLONOGRAPHY [facility] Start: 1997 DIABETES SCREEN DIABETES SCREEN [facility] Start: 1997 Diabetes Screening Diabetes Screenin g [facility] Start: 1997 FECAL OCCULT BLOOD FECAL OCCULT BLOO D [facility] Start: 1997 Screening for malign ant neoplasm of colon [facility] Start: 1997 SIGMOIDOSCOPY SIGMOIDOSCOPY [facility] Start: 1971 Urine microalbumin profile [facility] Start: 1970 Anxiety Screening Anxiety Screening [facility] Start: 1970 Depression Screening Depression Scre ening [facility] Start: 1970 HEPATITIS C SCREENING HEPATITIS C [facility] Start: 1970 Hepatitis C screening Hepatitis C [facility] Start: 1964 Adult depression screening assessment DEPRESSION SCREENING [facility] Immunizations Immunization Date Immunization Notes Care Provider Fa cristobal 11-16-2022 influenza virus vaccine, unspecified formulation Estephanie Espinal MD Work Phone: [facility] 05-09-2020 Covid (Pfizer) [facility] 04-18-2020 Covid (Pfizer) [facility] Payers Date Payer Category Payer Self-pay [id number] 2023 Self-pay [id number] 2017 Medicare MEDICARE MEDICAR E A AND B [id number] 2017-Present [phone] [place] [address] Medicare [id number] 2017 Medicare [id number] 2017 Medicare [id number] 2015 [employer] [place] ANTHEM BC BS FEP PPO [id number] 2015 Unknown ANTHEM ANTHEM BC BS FEP PPO [id number] 2015-Present [phone] [address] [place] [address] PPO [id number] 2015 Unknown ANTHEM ANTHEM BC BS FEP PPO [id number] 2015-Present [phone] [address] [place] [address] PPO [id number] 2015 Unknown [id number] Unknown [id number] Unknown [id number] Unknown [id number] Social History Date Type Detail Facility Start: 07-03-2015 End: 01-18-2023 Tobacco smoking status NHIS Never smoked tobacco [facility] Start: 04-28-2021 End: 07-31-2024 Alcohol intake Current drinker of alcohol (finding) [facility] Start: 06-19-2014 History SDOH Alcohol Comment Occasionally 2-3 a month [facility] Start: 1950 Sex Assigned At Not on file C [facility] Start: 12-09-2020 End: 01-18-2023 Tobacco smoking status CAIS Unknown if ever smoked [facility] Start: 1950 Sex Assigned At Female W [facility] Start: 07-03-2015 Tobacco use and exposure Smokeless tobacco non-user [facility] Work Phone: Start: 03-01-2023 End: 07-31-2024 History of Social function [facility] Start: 03-01-2023 End: 07-31-2024 Tobacco use panel [facility] National Score (1-100), lower number is lower risk 99 [facility] Functional Status Date Assessment Result Facility 06-19-2014 Are you deaf, or do you have serious difficulty hearing No 06/19/2014 9:00 AM EDT Yudi Rachel Ma No [facility] 06-19-2014 Are you blind, or do you have serious difficulty seeing, even when wearing glasses Yes 06/19/2014 9:00 AM EDT Yudi Rachel Ma Yes [facility] 06-19-2014 Do you have serious difficulty walking or climbing stairs No 06/19/2014 9:00 AM EDT Yudi Rachel Ma No [facility] 06-19-2014 Do you have difficul ty dressing or bathing No 06/19/2014 9:00 AM EDT Yudi Rachel Ma No [facility] 06-19-2014 Because of a physica l, mental, or emotional condition, do you have difficulty doing errands alone such as visiting a physician's office or shopping No 06/19/2014 9:00 AM EDT Virginie Salvador Yudi No [facility] Mental Status Date Assessment Result Facility 06-19-2014 Because of a physica l, mental, or emotional condition, do you have serious difficulty concentrating, remembering, or making decisions No 06/19/2014 9:00 AM EDYudi Nowak Ma No [facility] Clinical Notes 05-21-2021 to 07-31-2024 Estephanie Espinal MD - 07/03/2024 7:58 AM Estephanie Magallon MD - 03/20/2024 9:47 AM Estephanie Watson MD - 08/30/2023 9:49 AM EDTPatient Instructions Note Date & Type Note Facility 07-31-2024 Note Date of Procedure 07/31/2024. [employer] Literature Professor Information Start time: 9:37 AM. Reliability Right Eye Good. Left Eye Good. Notes OD shallow IN arc, borderline worse OS shallow inf arc, sl worse? [facility] 07-03-2024 History of Presen t illness Narrative Tmax: 25, 27; Pachy: 618, 617 Lasers and Surgeries: OD: 04/2015 SLT 360 deg for IOP 24-25 09/2010 [facility] (in [place]) 04/2010 PPV for MH (in [place]) OS: 04/2015 SLT 360 deg for IOP 25-27 08/2011 [facility] (in [place]) 01/2011 PPV for MH (in [place]) Ocular Medication Intol and Non-efficacy: Brimonidine=NI 02/2015 Timolol , Latanoprost, Lumigan=NI per letter from Dr. Moses Simbrinza = NI (tried in the office not at home) per Dr. Moses Referred by Kaleb Moses, OD Now on Dorzolamide bid OD (04/2018 for IOP 18-21) Moderate stage POAG OU (upgrade OS from mild stage today) -HVF 07/2024 OD shallow IN arc, borderline worse OS shallow inf arc, sl worse? Scanned VF from Dr. Moses 06/2014 OD progressive inf NS. OS with dec MD, possible new sup NS -OCT 02/2024 OD sup >> inf thinning, stable OS diffuse thinning stable from 2019 but worse than prior. -Matrix VF 01/2015 OD classic inf NS. OS normal -thick corneas -IOP remains better than prior to SLT 8+ years ago although not ideal -last OCT stable OU -todays VF maybe worse OS>OD but not def -Add dorzolamide to OS 4 months IOP Recurrent ERM -OCT 10/2021 macula OS stable lamellar MH without edema -OCT 02/2024 macula OS stable lamellar MH, stable -vision stable today (not addressed today) Recent Dx of rosacea with some dry eye symptoms -now on generic accutane I have confirmed and edited as necessary the relevant HPI, ophthalmic history, ROS, and neuro exam findings as obtained by others. I have seen and examined Valeria Pena. I have discussed the case and the management of this patient's care with the Resident/Fellow, if applicable. I also have reviewed, edited as necessary, and agree with the assessment and plan as stated above and agree with all of its relevant components. documented in this encounter [facility] 07-03-2024 Note HNO ID: [id number] Author: ESTEPHANIE ESPINAL MD Service: ? Author Type: Physician Type: Progress Notes Filed: 07/31/2024 10:07 Note Text: Tmax: 25, 27; Pachy: 618, 617 Lasers and Surgeries: OD: 04/2015 SLT 360 deg for IOP 24-25 09/2010 [facility] (in [place]) 04/2010 PPV for MH (in [place]) OS: 04/2015 SLT 360 deg for IOP 25-27 08/2011 [facility] (in [place]) 01/2011 PPV for MH (in [place]) Ocular Medication Intol and Non-efficacy: Brimonidine=NI 02/2015 Timolol , Latanoprost, Lumigan=NI per letter from Dr. Moses Simbrinza = NI (tried in the office not at home) per Dr. Moses Referred by Kaleb Moses, OD Now on Dorzolamide bid OD (04/2018 for IOP 18-21) Moderate stage POAG OU (upgrade OS from mild stage today) -HVF 07/2024 OD shallow IN arc, borderline worse OS shallow inf arc, sl worse? Scanned VF from Dr. Moses 06/2014 OD progressive inf NS. OS with jan MD, possible new sup NS -OCT 02/2024 OD sup >> inf thinning, stable OS diffuse thinning stable from 2019 but worse than prior. -Matrix VF 01/2015 OD classic inf NS. OS normal -thick corneas -IOP remains better than prior to SLT 8+ years ago although not ideal -last OCT stable OU -todays VF maybe worse OS>OD but not def -Add dorzolamide to OS 4 months IOP Recurrent ERM -OCT 10/2021 macula OS stable lamellar MH without edema -OCT 02/2024 macula OS stable lamellar MH, stable -vision stable today (not addressed today) Recent Dx of rosacea with some dry eye symptoms -now on generic accutane I have confirmed and edited as necessary the relevant HPI, ophthalmic history, ROS, and neuro exam findings as obtained by others. I have seen and examined Valeria Pena. I have discussed the case and the management of this patient's care with the Resident/Fellow, if applicable. I also have reviewed, edited as necessary, and agree with the assessment and plan as stated above and agree with all of its relevant components. [facility] 03-20-2024 Note Date of Procedure 03/20/2024. [employer] English Literature Professor Information Computer Aided Drafter: Tamara Talavera OCT Macula Interpretation Abnormal foveal contour. Findings include Epiretinal membrane, Pseudohole; Negative for Intraretinal fluid, Cystoid macular edema. Interval Change Stable. [facility] 03-20-2024 Note Date of Procedure 03/20/2024. [employer] Literature Professor Information Computer Aided Drafter: Tamara Talavera Quality Right Eye Good. Left Eye Good. Notes OD sup >> inf thinning, stable OS idiffuse thinning stable from 2019 but worse than prior. [facility] 03-20-2024 Note HNO ID: [id number] Author: ESTEPHANIE ESPINAL MD Service: ? Author Type: Physician Type: Progress Notes Filed: 03/20/2024 10:02 Note Text: Tmax: 25, 27; Pachy: 618, 617 Lasers and Surgeries: OD: 04/2015 SLT 360 deg for IOP 24-25 09/2010 [facility] (in [place]) 04/2010 PPV for MH (in [place]) OS: 04/2015 SLT 360 deg for IOP 25-27 08/2011 [facility] (in [place]) 01/2011 PPV for MH (in [place]) Ocular Medication Intol and Non-efficacy: Brimonidine=NI 02/2015 Timolol , Latanoprost, Lumigan=NI per letter from Dr. Moses Simbrinza = NI (tried in the office not at home) per Dr. Moses Referred by Kaleb Moses, OD Now on Dorzolamide bid OD (04/2018 for IOP 18-21) Moderate stage POAG OD, mild OS -HVF 08/2023 OD stable, shallow INS/arc OS trace inf arc, stable Scanned VF from Dr. Moses 06/2014 OD progressive inf NS. OS with william TANNER, possible new sup NS -OCT 02/2024 OD sup >> inf thinning, stable OS idiffuse thinning stable from 2019 but worse than prior. -Matrix VF 01/2015 OD classic inf NS. OS normal -thick corneas -IOP remains better than prior to SLT 8+ years ago although not ideal. -both HVF and OCT stable OU 4 months HVF Recurrent ERM -OCT 10/2021 macula OS stable lamellar MH without edema -OCT 02/2024 macula OS stable lamellar MH, stable -vision stable today (not addressed today) Recent Dx of rosacea with some dry eye symptoms -now on generic accutane I have confirmed and edited as necessary the relevant HPI, ophthalmic history, ROS, and neuro exam findings as obtained by others. I have seen and examined Valeria Yue. I have discussed the case and the management of this patient's care with the Resident/Fellow, if applicable. I also have reviewed, edited as necessary, and agree with the assessment and plan as stated above and agree with all of its relevant components. [facility] 03-20-2024 History of Presen t illness Narrative Tmax: 25, 27; Pachy: 618, 617 Lasers and Surgeries: OD: 04/2015 SLT 360 deg for IOP 24-25 09/2010 [facility] (in [place]) 04/2010 PPV for MH (in [place]) OS: 04/2015 SLT 360 deg for IOP 25-27 08/2011 [facility] (in [place]) 01/2011 PPV for MH (in [place]) Ocular Medication Intol and Non-efficacy: Brimonidine=NI 02/2015 Timolol , Latanoprost, Lumigan=NI per letter from Dr. Moses Simbrinza = NI (tried in the office not at home) per Dr. Moses Referred by Kaleb Moses, OD Now on Dorzolamide bid OD (04/2018 for IOP 18-21) Moderate stage POAG OD, mild OS -HVF 08/2023 OD stable, shallow INS/arc OS trace inf arc, stable Scanned VF from Dr. Moses 06/2014 OD progressive inf NS. OS with william MD, possible new sup NS -OCT 02/2024 OD sup >> inf thinning, stable OS idiffuse thinning stable from 2019 but worse than prior. -Matrix VF 01/2015 OD classic inf NS. OS normal -thick corneas -IOP remains better than prior to SLT 8+ years ago although not ideal. -both HVF and OCT stable OU 4 months HVF Recurrent ERM -OCT 10/2021 macula OS stable lamellar MH without edema -OCT 02/2024 macula OS stable lamellar MH, stable -vision stable today (not addressed today) Recent Dx of rosacea with some dry eye symptoms -now on generic accutane I have confirmed and edited as necessary the relevant HPI, ophthalmic history, ROS, and neuro exam findings as obtained by others. I have seen and examined Valeria Pena. I have discussed the case and the management of this patient's care with the Resident/Fellow, if applicable. I also have reviewed, edited as necessary, and agree with the assessment and plan as stated above and agree with all of its relevant components. documented in this encounter [facility] 08-30-2023 Note Date of Procedure 08/30/2023. [employer] Literature Professor Information Computer Aided Drafter: omi. Start time: 9:22 AM. Reliability Right Eye Good. Left Eye Good. Interpretation Right Eye Nasal step defect. Left Eye Arcuate defect. Interval Change Right Eye Stable. Left Eye Stable. [facility] 08-30-2023 Note HNO ID: [id number] Author: ESTEPHANIE ESPINAL MD Service: ? Author Type: Physician Type: Progress Notes Filed: 08/30/2023 09:53 Note Text: Tmax: 25, 27; Pachy: 618, 617 Lasers and Surgeries: OD: 04/2015 SLT 360 deg for IOP 24-25 09/2010 [facility] (in [place]) 04/2010 PPV for MH (in [place]) OS: 04/2015 SLT 360 deg for IOP 25-27 08/2011 [facility] (in [place]) 01/2011 P[facility] for MH (in [place]) Ocular Medication Intol and Non-efficacy: Brimonidine=NI 02/2015 Timolol , Latanoprost, Lumigan=NI per letter from Dr. Moses Simbrinza = NI (tried in the office not at home) per Dr. Moses Referred by Kaleb Moses, OD Now on Dorzolamide bid OD (04/2018 for IOP 18-21) Moderate stage POAG OD, mild OS -HVF 08/2023 OD stable, shallow INS/arc OS trace inf arc, stable Scanned VF from Dr. Moses 06/2014 OD progressive inf NS. OS with william TANNER, possible new sup NS -OCT 02/2023 OD sup > inf thinning, stable from 2013 OS idiffuse thinning stable from 2019 but worse than prior. -Matrix VF 01/2015 OD classic inf NS. OS normal -thick corneas -IOP remains better than prior to SLT 8+ years ago -both HVF and OCT stable OU 6 months dilate Recurrent ERM -OCT 10/2021 macula OS stable lamellar MH without edema -OCT 02/2023 macula OS stable lamellar MH (not addressed today) Recent Dx of rosacea with some dry eye symptoms -now on generic accutane I have confirmed and edited as necessary the relevant HPI, ophthalmic history, ROS, and neuro exam findings as obtained by others. I have seen and examined Valeria Pena. I have discussed the case and the management of this patient's care with the Resident/Fellow, if applicable. I also have reviewed, edited as necessary, and agree with the assessment and plan as stated above and agree with all of its relevant components. [facility] 08-30-2023 History of Presen t illness Narrative Tmax: 25, 27; Pachy: 618, 617 Lasers and Surgeries: OD: 04/2015 SLT 360 deg for IOP 24-25 09/2010 [facility] (in [place]) 04/2010 PPV for MH (in [place]) OS: 04/2015 SLT 360 deg for IOP 25-27 08/2011 [facility] (in [place]) 01/2011 PPV for MH (in [place]) Ocular Medication Intol and Non-efficacy: Brimonidine=NI 02/2015 Timolol , Latanoprost, Lumigan=NI per letter from Dr. Moses Simbrinza = NI (tried in the office not at home) per Dr. Moses Referred by Kaleb Moses, OD Now on Dorzolamide bid OD (04/2018 for IOP 18-21) Moderate stage POAG OD, mild OS -HVF 08/2023 OD stable, shallow INS/arc OS trace inf arc, stable Scanned VF from Dr. Moses 06/2014 OD progressive inf NS. OS with william TANNER, possible new sup NS -OCT 02/2023 OD sup > inf thinning, stable from 2013 OS idiffuse thinning stable from 2019 but worse than prior. -Matrix VF 01/2015 OD classic inf NS. OS normal -thick corneas -IOP remains better than prior to SLT 8+ years ago -both HVF and OCT stable OU 6 months dilate Recurrent ERM -OCT 10/2021 macula OS stable lamellar MH without edema -OCT 02/2023 macula OS stable lamellar MH (not addressed today) Recent Dx of rosacea with some dry eye symptoms -now on generic accutane I have confirmed and edited as necessary the relevant HPI, ophthalmic history, ROS, and neuro exam findings as obtained by others. I have seen and examined Valeria Pena. I have discussed the case and the management of this patient's care with the Resident/Fellow, if applicable. I also have reviewed, edited as necessary, and agree with the assessment and plan as stated above and agree with all of its relevant components. documented in this encounter [facility] 08-10-2022 Instructions Estephanie Espinal MD - 08/10/2022 4:11 PM EDT You will be dilated on your next visit. This will likely make your vision blurry for several hours, and you should strongly consider bringing a milk pickup driver. documented in this encounter [facility] 08-10-2022 History of Presen t illness Narrative Tmax: 25, 27; Pachy: 618, 617 Lasers and Surgeries: OD: 04/2015 SLT 360 deg for IOP 24-25 09/2010 [facility] (in [place]) 04/2010 PPV for MH (in [place]) OS: 04/2015 SLT 360 deg for IOP 25-27 08/2011 [facility] (in [place]) 01/2011 PPV for MH (in [place]) Ocular Medication Intol and Non-efficacy: Brimonidine=NI 02/2015 Timolol , Latanoprost, Lumigan=NI per letter from Dr. Moses Simbrinza = NI (tried in the office not at home) per Dr. Moses Referred by Kaleb Moses, OD Now on Dorzolamide bid OD (04/2018 for IOP 18-21) Moderate stage POAG OD, mild OS -HVF 07/2022 OD stable, shallow INS/arc OS trace inf arc, stable Scanned VF from Dr. Moses 06/2014 OD progressive inf NS. OS with william TANNER, possible new sup NS -OCT 10/2021 OD sup thinning, stable, inf bundle looks thinner but suspect prior thickening was tractional or artifact OS inf thinning stable from 09/2019 but worse than prior, stable -Matrix VF 01/2015 OD classic inf NS. OS normal -thick corneas -IOP remains better than prior to SLT -OD: both HVF and probably OCT stable -OS: OCT stable from 09/2019. 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 I have seen and examined Valeria Pena. I also have reviewed, edited as necessary, and agree with the assessment and plan and all of its relevant components as stated above. I have discussed the case and the management of this patient's care with the Resident/Fellow, if applicable. August 10, 2022 3:22 PM. documented in this encounter [facility] 05-21-2021 Miscellaneous Notes E-Prescribing Status: Receipt confirmed by pharmacy (04/28/2021 9:46 AM EDT) documented in this encounter [facility] Evaluation note No assessment inform ation available [facility] Work Phone: Evaluation note Diagnosis Primary open angle glaucoma of right eye, moderate stage- Primary Primary open angle glaucoma (POAG) of left eye, mild stage Lamellar macular hole of left eye Macular cyst, hole, or pseudohole of retina [facility] Onset Date Resolution Status Encounter for routine gynecological examination noneactive [facility] Work Phone: Evaluation note* Diagnosis Primary open angle glaucoma of right eye, moderate stage- Primary Primary open angle glaucoma (POAG) of left eye, mild stage [facility] Primary open angle glaucoma of right eye, moderate stage- Primary Primary open angle glaucoma (POAG) of left eye, mild stage Lamellar macular hole of left eye Macular cyst, hole, or pseudohole of retina Epiretinal membrane, left [facility] Primary open angle glaucoma (POAG) of both eyes, moderate stage- Primary [facility] ([facility]arrative)No reason for referral information availableWSelect [facility] Work Phone: Chief Complaint and Reason for Visit Chief Complaint SCREENING Chief Complaint SCREEN Chief Complaint SCREEN 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 Reason for Visit Encounter for routin e gynecological examination Chief Complaint Admit Date DWD June 22, 2024 8:49am Family History No Family History Records Found Relationship Condition Age at Onset Recorded Date/T kulwant father Malignant neoplasm of liver Unknown mother Myocardial infarction Unknown grandmother Malignant neoplasm of uterus Unknown brother Myocardial infarction Unknown Summary Purpose Advance Directives No Advanced Directives Records FoundNo Advanced Directives Records Found Additional Source Comments Source Comments (unrecognize d section and content) In the event this informatio n is protected by the Federal Confidentiality of Alcohol and Drug Abuse Patient Records regulations: The Federal rules restrict any use of the information to criminally investigate or prosecute any alcohol or drug abuse patient.[facility] the event this information is protected by the Federal Confidentiality of Alcohol and Drug Abuse Patient Records regulations: The Federal rules restrict any use of the information to criminally investigate or prosecute any alcohol or drug abuse patient.[facility] the event this information is protected by the Federal Confidentiality of Alcohol and Drug Abuse Patient Records regulations: The Federal rules restrict any use of the information to criminally investigate or prosecute any alcohol or drug abuse patient.[facility] the event this information is protected by the Federal Confidentiality of Alcohol and Drug Abuse Patient Records regulations: The Federal rules restrict any use of the information to criminally investigate or prosecute any alcohol or drug abuse patient.[facility] Center[facility] the event this information is protected by the Federal Confidentiality of Alcohol and Drug Abuse Patient Records regulations: The Federal rules restrict any use of the information to criminally investigate or prosecute any alcohol or drug abuse patient.[facility] Reason for Visit (unrecogniz ed section and content) Reason Comments Refill Request Reason Comments Glaucoma Follow Up Reason Comments Primary Open Angle Glaucoma Follow Up Reason Comments Primary Open Angle Glaucoma Reason Comments POAG OU Care Teams (unrecognized sec tion and content) 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 Yaima Costello DO Family Provider Active Dr. Yaima Costello DO Primary Care Provider Active Team Status: Inactive Member Role Status Dates Dr. Yaima Costello DO Primary Care Provide r, Attending Provider, Referring Provider Active Team Status: Inactive Member Role Status Dates Dr. Yaima Costello DO Primary Care Provider Active Dr. Rain Mcgill MD Attending Provider, Referr ing Provider Active Team Status: Inactive Member Role Status Dates Yaima WHYTE Referring Provider Active Dr. Rain Mcgill MD Attending Provider Active Dr. 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 Yaima Costello DO Primary Care Provider Active Team Status: Inactive Member Role Status Dates Dr. 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 Start Date End Date Luis F Nails PCP - General 11/16/03 Goals (unrecognized section and content) Goals may be documented in a n alternate sectionGoals may be documented in an alternate sectionGoals may be documented in an alternate sectionGoals may be documented in an alternate sectionGoals may be documented in an alternate section INFORMATION SOURCE (unrecogn ized section and content) DATE CREATED AUTHOR 07/16/2024 [facility] DATE CREATED AUTHOR 'Lloyd GIFFORD 08/01/2024 [facility] FOR RECORDS PERTAINING TO PATIENTS WHO ARE OR HAVE BEEN ENROLLED IN A CHEMICAL DEPENDENCY/SUBSTANCEABUSE PROGRAM, SOME INFORMATION MAY BE OMITTED. This clinical summary was aggregated from multiple sources. Caution should be exercised in using it in the provision of clinical care. This summary normalizes information from multiple sources, and as a consequence, information in this document may materially change the coding, format and clinical context of patient data. In addition, data may be omitted in some cases. CLINICAL DECISIONS SHOULD BE BASED ON THE PRIMARY CLINICAL RECORDS. [facility]. provides no warranty or guarantee of the accuracy or completeness of information in this document.
[2024-10-25 12:56] LABS: Hematocrit 42.0 % (37-47); Hemoglobin 14.2 g/dL (12.0-15.0); Immature Granulocytes Count 0.020 X10^3/uL (0.0-0.0); Mean Corp Hgb Conc 33.8 g/dL (32-36); Mean Corpuscular Volume 93.5 fL (81-99); Mean Platelet Vol. 10.8 fl (6.2-12.0); NRBC Flagged by Analyzer 0 % (0-5); Platelet Count 240 K/mm3 (150-450); RBC Distribution Width CV 13.0 % (11.6-14.6); RBC Distribution Width SD 44.5 fl (35.1-43.9); Red Blood Count 4.49 M/mm3 (4.2-5.4); White Blood Count 5.7 K/mm3 (4.4-11.0)
[2024-10-25 13:23] LABS: AST(SGOT) 28 U/L (<=31); Alanine Aminotransfer ALT/SGPT 29 U/L (<=34); Albumin, Serum 4.4 g/dL (3.4-4.8); Alkaline Phosphatase 110 U/L (35-104); Anion Gap 12 (5-15); BUN 18 mg/dL (4-19); BUN/Creat Ratio 22.2 RATIO (10-20); Calcium,Total 9.5 mg/dL (7.6-11.0); Carbon Dioxide 23.0 mmol/L (21.0-32.0); Chloride 108 mmol/L (98-108); Cholesterol 221 mg/dL (<=200); Globulin 2.9 g/dL (2.2-4.2); Glucose 140 mg/dL (70-99); Low Density Lipoprotein Calc. 146 mg/dL; Potassium 4.1 mmol/L (3.3-5.1); Triglycerides 116 mg/dL; Very Low Density Lipoprotein 23 mg/dL (5-40); cholesterol:hdl ratio screen 4.30
[2024-10-26 04:07] LABS: PROGESTERONE 0.2 ng/mL (.)
== END | disposition home or self-care (01) ==
LOC: BFHLAB 09:22
PROVIDERS: PCP Family Medicine; Visit Provider Family Medicine
DX: Z51.81 Encounter for therapeutic drug level monitoring (principal); R73.03 Prediabetes; E78.5 Hyperlipidemia, unspecified; L74.510 Primary focal hyperhidrosis, axilla
CPT/HCPCS: 36415; 80053; 80061; 82670; 84144; 84402; 84403; 85025

== ENCOUNTER → 2025-01-09 | Outpatient (CLI) | payer MEDICARE, BC, SELFPAY ==
--- NOTE | 2025-01-09 10:15 | BI_ITS ---
EXAM: SCRN MAMM (CAD)W/MAURA BILAT DATE: 01/09/2025 CLINICAL HISTORY: F, Age 74 y/o , SCREEN FOR BREAST CANCER TECHNIQUE: Procedure Code: [id number] Modality: MG Procedure: SCRN MAMM (CAD)W/MAURA BILAT COMPARISON: Prior exam(s) dated 12/29/2023, 12/25/2022, and 12/18/2021. FINDINGS: TISSUE DENSITY: There are scattered areas of fibroglandular density. Bilateral Breast Mammographic Findings: No significant masses, calcifications or other abnormalities are identified. Benign-appearing round microcalcifications are seen in both breasts. BI/SCRN MAMM (CAD)W/MAURA BILAT IMPRESSION: Benign screening mammogram OVERALL FINAL ASSESSMENT BI-RADS 2: BENIGN RECOMMENDATION: Routine annual follow-up in 1 Year Additional Recommendation none A letter with findings and recommendations will be mailed to the patient. Reading Location: [id number]
== END | disposition home or self-care (01) ==
LOC: OPBI 10:11
PROVIDERS: PCP Family Medicine; Referring Provider Obstetrics & Gynecology; Visit Provider Obstetrics & Gynecology
DX: Z12.31 Encounter for screening mammogram for malignant neoplasm of breast (principal)
CPT/HCPCS: 77063; 77067